=== PATIENT | male | born 1990 | race Caucasian/White ===

== ENCOUNTER 2020-11-26 14:00 | Outpatient (RCR) | payer BC, SELFPAY ==
--- NOTE | 2020-10-15 10:01 | MHC.PT.EP ---
[facility] [place] Office [place] Office [place] Office [address] Alexandra Jerez [address] [phone] F: [phone] F: [phone] F: [phone] F: [phone] Physical Therapy Plan of Care Date of Evaluation: 10/15/20 Date of Surgery: N/A Diagnosis: M54.2 cervicalgia neck pain Assessment: pt presents w/ signs and symptoms consistent w/ cervical nerve root impingement. pt presents to physical therapy with pain, decreased range of motion, decreased strength, impaired functional mobility, and impaired postural awareness. pt is a good candidate for skilled PT due to age, potential remediation of impairments, typical disease/condition progression and prognosis, comorbidities, and motivation. pt would benefit from tailored strengthening and stretching exercise program, functional training, postural re-training, neuromuscular re-education, modalities as needed for pain, and work-related training. Frequency and Duration: The patient will be seen 2x/wk for 5 wks Short Term Goals: pt will be I w/ HEP to promote self-management of condition. pt will improve R shoulder flexion by 20 degrees to promote ease in reaching for objects on higher shelves. 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 pt will report statistically significant improvement in self-reported outcome measure, NDI, to promote return to PLOF. Treatment Plan: Modalities to reduce pain, spasms and effusion. Manual therapy to restore motion and function. Therapeutic exercise to improve strength and flexibility. Neuromuscular re-education for posture and balance. Therapeutic activities to return to functional activities of daily living. Please sign and return to therapist. Thank you for your referral.
--- NOTE | 2020-11-12 16:13 | MHC.PT.PR ---
[facility] [place] Office [place] Office [place] Office [address] Alexandra Jerez [address] [phone] F: [phone] F: [phone] F: [phone] F: [phone] Physical Therapy Progress Note Diagnosis: M54.2 cervicalgia neck pain Date of Surgery: N/A Date of Evaluation: 10/15/20 Treatments to Date: 7 Cancellations to Date: 0 No Shows to Date: 0 Subjective: pt reported the only pain he is still noticing is in his shoulder. This pain is circumstantial to what he is doing and changes w/ certain shoulder movements. Pain Score and Location: 5 R sided neck, R radicular Objective Measures: Shoulder AROM: -Flexion: B 180 (R end range pain) -Abduction: B 180 (R end range pain) -Extension: B 50 (R end range pain) -External rotation: B T2 -Internal rotation: R L3 (R pain), L T10 Shoulder MMT: -Flexion: R 4/5 (pain), L 5/5 -Abduction: R 4/5 (pain), L 5/5 -Extension: R 4+/5 (pain), L 5/5 -Internal rotation: R 4-/5 (pain), L 4+/5 -External rotation: R 4/5, L 4+/5 Assessment: pt arrived reporting he has noticed a significant improvement in his function and pain. pt feels he has improved approx. 75% since starting physical therapy. His radicular symptoms have cleared and he has noticed an improvement in his R shoulder strength. He still has lateral shoulder pain w/ shoulder specific movements. Performed an abbreviated re-eval today and pt has signs and symptoms consistent w/ R RTC tendinopathy, specifically w/ internal rotation movements. pt had pain provocation and reproduction w/ IR AROM and resisted testing. pt still has pain w/ reaching for objects on higher shelves, upper body ADLs, sleeping on the R side, and lifting greater than 30#. pt requires progress note from PT in order to MD to fulfill extension required as pt is not ready to return to work. This PT will send progress note on 11/12 to MD in order to fulfill extension. Fax: PT Plan: Continue with PT Frequency and Duration: The patient will be seen 2x/wk for 3 wks Treatment Plan: Therapeutic Exercise Dynamic Therapeutic Activities Neuromuscular Re-ed Manual Therapies Joint Mobilization Taping Home Exercise Program Patient Education Electrical Stimulation Iontophoresis Reviewed/ Agreed with Student Documentation: Therapist: Thank you once again for your referral.
--- NOTE | 2020-11-29 12:56 | MHC.PT.DC ---
[facility] [place] Office [place] Office [place] Office [address] Alexandra Jerez [address] [phone] F: [phone] F: [phone] F: [phone] F: [phone] Physical Therapy Discharge Report Diagnosis: M54.2 cervicalgia neck pain Date of Surgery: N/A Date of Evaluation: 10/15/20 Date of Discharge: 11/29/20 Treatments to Date: 10 Cancellations to Date: 2 No Shows to Date: 1 Discharge Status: Improved Function Independent with HEP Discharge Summary: The patient had very little irritation of shoulder with the therapeutic exercise program today. He has progressed to a strengthening routine to promote functional strength of upper extremities. Discussed with the patient regarding a return to gym program and to avoid any exercise that increased pain greater than 2 points on numeric pain rating scale. 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 He did not attend his last visit and is being discharged at this time. Electronically signed by: Anitra Pemberton PT, DPT Please sign and return to therapist. Thank you for your referral.
== END 2020-11-29 12:57 | disposition other institution (70) ==
LOC: HO.PT 14:00
PROVIDERS: PCP Internal Medicine; Visit Provider Internal Medicine
DX: M54.2 Cervicalgia (principal)
CPT/HCPCS: 97033; 97110; 97112; 97140; 97161; 97164

== ENCOUNTER 2021-03-07 09:47 | Emergency (ER) | payer BC, SELFPAY ==
--- NOTE | ~2021-03-07 | US_ITS ---
EXAMINATION: US VENOUS ULTRASOUND WITH DOPPLER LOWER EXTREMITY, BILATERAL CLINICAL INFORMATION: Edema COMPARISON: None TECHNIQUE: Ultrasound of the deep veins is performed from the hip to the calf with compression sonography and color and pulse Doppler assessment. Spectral analysis with color-flow imaging is performed. FINDINGS: RIGHT: There is normal venous compression and respiratory variation and augmented flow. The visualized common femoral vein, superficial femoral vein, profunda femoral vein, popliteal vein, and the trifurcation region shows no evidence of deep venous thrombosis. There is no significant popliteal fossa cyst. . LEFT: There is normal venous compression and respiratory variation and augmented flow. The visualized common femoral vein, superficial femoral vein, profunda femoral vein, popliteal vein, and the trifurcation region shows no evidence of deep venous thrombosis. There is no significant popliteal fossa cyst. . US/US venous duplex LE BI IMPRESSION: No DVT demonstrated in the bilateral lower extremity.
--- NOTE | ~2021-03-07 | XR_ITS ---
EXAMINATION: XR CHEST CLINICAL INFORMATION: Lower extremity swelling with history of Covid COMPARISON: None TECHNIQUE: 2 views of the chest were obtained. FINDINGS: No significant abnormality is noted involving the heart, lungs, mediastinum, bony thorax or soft tissues. XR/XR chest 2V IMPRESSION: No acute disease.
--- NOTE | ~2021-03-07 | CT_ITS ---
EXAMINATION: CT ANGIOGRAM OF THE CHEST WITH AND WITHOUT CONTRAST (CT PULMONARY ANGIOGRAM FOR PE) CLINICAL INFORMATION: Patient with lower extremity edema. History of Covid. ?PE. COMPARISON: None TECHNIQUE: Prior to contrast administration, noncontrast localization images were obtained. Subsequently, multidetector volumetric imaging was performed from the thoracic inlet to below the diaphragms following the administration of 65 mL Omnipaque 350 intravenous contrast. No contrast reaction reported. Sagittal, coronal, and MIP oblique sagittal reformatted images were obtained on the CT workstation, uploaded to PACS, and reviewed. This CT examination was performed using dose optimization techniques as appropriate, variously including the following: *Automated exposure control *Adjustment of mA and/or kV according to patient size (this includes techniques or standardized protocols for targeted exams where dose is matched to indication/reason for exam; i.e. extremities or head) *Use of iterative reconstruction technique Total exam dose-length product 377 mGy-cm FINDINGS: QUALITY OF STUDY/CONTRAST BOLUS: Suboptimal opacification. PULMONARY ARTERIES: No gross filling defects in the central pulmonary vasculature to indicate pulmonary emboli. The more distal pulmonary arterial system is suboptimally opacified, limiting evaluation. THORACIC AORTA: Normal caliber aorta. LUN mm nodule adjacent to the right fissure 6:195. Subtle tree-in-bud opacities in the posterior aspect of the left lower lobe 6:186-190, probably reflecting inflammatory process. No confluent airspace disease.. Trachea and central airway are patent. PLEURA: No pleural effusion or pneumothorax. MEDIASTINUM: Normal heart size. No pericardial effusion. No hilar or mediastinal lymphadenopathy. No evidence of septal bowing or right heart strain. CHEST WALL/AXILLA: No axillary or internal mammary lymphadenopathy. OSSEOUS STRUCTURES: No acute or suspicious osseous abnormality. Mild thoracic spine degeneration. UPPER ABDOMEN: Unremarkable. No reflux of contrast into the hepatic veins to suggest elevated right heart pressures. CT/CT angio chest PE protocol IMPRESSION: 1. No evidence of central pulmonary emboli. The more distal vasculature is suboptimally evaluated. 2. No evidence of confluent airspace disease. Subtle small area of tree-in-bud opacities in the posterior aspect of the left lower lobe, suggesting inflammatory or infectious process. Nonspecific 2 mm right lung nodule. According to the UPDATED 2017 Fleischner Society recommendations, the advised follow-up imaging for solid nodules < 6 mm is: LOW RISK PATIENT: No routine follow-up. HIGH RISK PATIENT: Optional CT at 12 months. VTE: Negative
[2021-03-07 10:00] VITALS: BP 147/112; PULSE 90; RESP 20; TEMP 37.1; O2SAT 97; BMI 30.2
--- NOTE | 2021-03-07 10:02 | ED_ITS ---
HPI - Skin/Abscess/Foreign Bdy General Chief complaint: Skin/Abscess/Foreign Body Stated complaint: infection Time Seen by Provider: 03/07/21 09:56 Related Data Home Medications Medication Instructions Recorded Confirmed cyclobenzaprine 10 mg tablet 10 mg PO BEDTIME PRN 10/04/20 11/26/20 Allergies Allergy/AdvReac Type Severity Reaction Status Date / Time No Known Allergies Allergy Verified 11/26/20 13:25 [No Known Allergies*] Review of Systems Review of Systems: Constitutional : No Weight loss, No Fever, No Chills, No Night Sweats, No Fatigue, No Malaise ENT/Mouth : No Hearing loss, No Ear Pain, No Nasal Congestion, No Sinus Pain, No Hoarseness, No sore throat, No Rhinorrhea, No Swallowing Difficulty Eyes: No Eye Pain, No Swelling, No Redness, No Foreign Body, No Discharge, No Vision Changes Cardiovascular : No Chest Pain, No SOB, No Dyspnea on Exertion, No Orthopnea, No Edema, No Palpitations Respiratory : No Cough, No Sputum, No Wheezing, No Smoke Exposure, No Dyspnea Gastrointestinal : No Nausea, No Vomiting, No Diarrhea, No Constipation, No abdominal Pain, No Hematochezia, No Melena Genitourinary : no irregular bleeding, No Dysuria, No Urinary Frequency, No Hematuria, No Urinary Incontinence, No Urgency, No Flank Pain, No Urinary Flow Changes, No Hesitancy Musculoskeletal : No joint pain, No Myalgias, No Joint Swelling Skin : No Skin Lesions, No rash Neuro : No Weakness, No Numbness, No Paresthesias, No Loss of Consciousness, No Dizziness, No Headache Psych : No Anxiety/Panic, No Depression, No SI/HI/AH/VH, No Social Issues, Heme/Lymph: No Bruising, No Bleeding,No Lymphadenopathy Endocrine : No Polyuria, No Polydipsia, No Temperature Intolerance Yes all other systems are reviewed and are negative [facility] Past Medical History Surgical History No pertinent past surgical history Family History Family History Father No problems noted. Mother No problems noted. Social History Social History Alcohol intake: never Smoking Status: Current every day smoker Tobacco Type: Cigarette Packs Per Day: 1 Cigarettes Per Day: 20.0 Discharge Plan Discharge Prescriptions: No Action cyclobenzaprine 10 mg tablet 10 mg PO BEDTIME PRN (Reason: muscle spasm) RF: 0
--- NOTE | 2021-03-07 10:12 | ECG_ITS ---
Test Reason : SKIN ABSCESS Blood Pressure : / mmHG Vent. Rate : 067 BPM Atrial Rate : 067 BPM P-R Int : 150 ms QRS Dur : 100 ms QT Int : 410 ms P-R-T Axes : 051 053 024 degrees QTc Int : 433 ms Normal sinus rhythm Normal ECG No previous ECGs available Referred By: Karissa Dubon Electronically Signed By:TANA FAROOQ
[2021-03-07 10:57] LABS: MANUAL DIFF FLAG NO
[2021-03-07 10:59] LABS: Basophils Percent Auto 0.3 % (0-2); Eosinophils Absolute Auto 0.2 X10*3/uL (0.0-0.4); Eosinophils Percent Auto 1.9 % (0-4); Hematocrit 36.2 % (42-52); Hemoglobin 11.8 g/dl (14.0-18.0); Imm Gran Abs Auto 0.06 X10*3/uL (0.00-0.03); Imm Gran Pct Auto 0.6 % (0.0-0.4); Lymphocytes Percent Auto 19.4 % (20-40); Mean Corpuscular HGB Conc 32.6 g/dl (31.0-36.0); Mean Corpuscular Hemoglobin 27.3 pg (27.0-33.0); Mean Corpuscular Volume 83.8 fL (80-98); Mean Platelet Volume 9.8 fL (9.4-12.4); Monocytes Absolute Auto 1.1 X10*3/uL (0.1-1.2); Monocytes Percent Auto 10.1 % (2-11); Neutrophils Absolute Auto 7.1 X10*3/uL (2.0-8.3); Neutrophils Percent Auto 67.7 % (45-73); Platelet Count 300 X10*3/uL (160-400); Red Blood Count 4.32 X10*6/uL (4.60-5.80); Red Cell Distribution Width 13.8 % (11.0-16.0); White Blood Count 10.5 X10*3/uL (4.8-10.8)
[2021-03-07] MEDS: 0.9 % Sodium Chloride 1,000 ML 999 ML IVCONT (11:00)
[2021-03-07] MEDS: cefTRIAXone sodium 2 GM in 0.9 % Sodium Chloride 50 ML IV (11:00)
[2021-03-07 11:05] LABS: INTERNATIONAL NORM RATIO 1.1 (0.9-1.1)
[2021-03-07 11:07] VITALS: BP 116/57; PULSE 75; RESP 16; TEMP 37.2; O2SAT 98
[2021-03-07 11:07] LABS: Partial Thromboplastin Time 34.3 SEC (24.1-38.0)
--- NOTE | 2021-03-07 11:17 | ED.GENADULT ---
HPI - General Adult General Chief complaint: Skin/Abscess/Foreign Body Stated complaint: infection Time Seen by Provider: 03/07/21 09:56 History of Present Illness HPI narrative: 30-year-old male who is a IV drug user presenting to the ED with complaints of abscess to his right middle finger at the distal aspect near the nail bed for the past few days worse today. Also reports a separate complaint of bilateral lower extremity foot swelling for the past few days worse today. Reports he tested positive for COVID approximately 10 days ago. 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 Although denies any SI/HI/auditory/visual hallucinations or thoughts of self injury. Patient reports he feels safe at home. He reports he is interested in detox although not today. Denies any dizziness, fevers, chills, headaches, neck pain/stiffness, cough, sore throat, runny nose/nasal congestion, chest pain, shortness of breath, dyspnea on exertion, orthopnea, any symptoms which include nausea/vomiting/abdominal pain/diarrhea/constipation/black or bloody stools or calf tenderness. Related Data Home Medications Medication Instructions Recorded Confirmed cyclobenzaprine 10 mg tablet 10 mg PO BEDTIME PRN 10/04/20 11/26/20 Previous Rx's Medication Instructions Recorded cephalexin 500 mg PO BID 10 Days #20 cap 03/07/21 doxycycline monohydrate 100 mg PO BID 10 Days #20 cap 03/07/21 ibuprofen 800 mg PO Q8H PRN #14 tab 03/07/21 oxycodone 5 mg PO BID PRN #10 tab 03/07/21 Allergies Allergy/AdvReac Type Severity Reaction Status Date / Time No Known Allergies Allergy Verified 11/26/20 13:25 [No Known Allergies*] Review of Systems Review of Systems: Constitutional : No Weight loss, No Fever, No Chills, No Night Sweats, No Fatigue, No Malaise ENT/Mouth : No Hearing loss, No Ear Pain, No Nasal Congestion, No Sinus Pain, No Hoarseness, No sore throat, No Rhinorrhea, No Swallowing Difficulty Eyes: No Eye Pain, No Swelling, No Redness, No Foreign Body, No Discharge, No Vision Changes Cardiovascular : No Chest Pain, No SOB, No Dyspnea on Exertion, No Orthopnea, No Edema, No Palpitations Respiratory : No Cough, No Sputum, No Wheezing, No Smoke Exposure, No Dyspnea Gastrointestinal : No Nausea, No Vomiting, No Diarrhea, No Constipation, No abdominal Pain, No Hematochezia, No Melena Genitourinary : no irregular bleeding, No Dysuria, No Urinary Frequency, No Hematuria, No Urinary Incontinence, No Urgency, No Flank Pain, No Urinary Flow Changes, No Hesitancy Musculoskeletal : + LE leg/foot swelling, No joint pain, No Myalgias Skin : + Skin abscess, + Skin Lesions, No rash Neuro : No Weakness, No Numbness, No Paresthesias, No Loss of Consciousness, No Dizziness, No Headache Psych : No Anxiety/Panic, No Depression, No SI/HI/AH/VH, No Social Issues, Heme/Lymph: No Bruising, No Bleeding,No Lymphadenopathy Endocrine : No Polyuria, No Polydipsia, No Temperature Intolerance Yes all other systems are reviewed and are negative [facility] Past Medical History Attestation statement: The following information was validated with the patient. Surgical History No pertinent past surgical history Family History Family History Father No problems noted. Mother No problems noted. Social History Social History Alcohol intake: never Smoking Status: Current every day smoker Tobacco Type: Cigarette Packs Per Day: 1 Cigarettes Per Day: 20.0 Advance Directives: No Advance Directives Information Provided: No Physical Exam Vital Signs: Vital Signs: Last Vital Signs Temp 98.9 F 03/07/21 11:07 Pulse 75 03/07/21 11:07 Resp 18 03/07/21 11:45 BP 125/60 03/07/21 11:45 Pulse Ox 98 03/07/21 11:45 Body Mass Index 30.2 vital signs have been reviewed as normal and appeared to be correct. Blood pressure hypertensive at 147/112. Heart rate normal. Respiration rate normal. Temperature normal. Oxygen saturation normal. Appearance: Alert. Oriented X3. No acute distress. Head: Normal external exam. Normocephalic. Atraumatic. Eyes: PERRLA. EOMI. Conjunctiva and sclera normal. Eyelids normal. ENT: Pharynx normal. Uvula midline. Moist mucous membranes. No trismus noted. No drooling noted. No muffled voice noted. Neck: Normal inspection. Neck supple. FROM. No adenopathy. Thyroid Normal. No meningeal signs. No neck mass noted. CVS: Normal heart rate and rhythm. Heart sound normal. No murmurs noted. Pulses normal throughout including distal pedis. Respiratory: No respiratory distress. Painless inspiration. Breath sounds normal. No wheezes/rales/rhonchi noted. Chest nontender. No accessory muscle usage noted or decreased air movement noted. Abdomen: Soft and nontender. Bowel sounds normal in all 4 quadrants. No distention noted. No organomegaly noted. No visible injury noted. Back: No CVA tenderness. Full range of motion noted. Skin: To right hand middle finger distal aspect at the nail bed patient has a fluctuant abscess with moderate surrounding erythema. No streaking/induration/foreign bodies noted. Patient has multiples track rios on bilateral forearms no signs of infection or abscesses. Skin warm and dry. Normal skin color. Normal skin turgor. No rashes/lacerations noted. Extremities: Bilateral lower extremity pitting edema. No calf tenderness bilateral. Otherwise Extremities exhibit normal range of motion and nontender. Neuro: Oriented X 3. No motor deficit. No sensory deficit. Reflexes normal. Course Course Course Narrative: 10:15am - 30-year-old male who is a IV drug user presenting to the ED with an abscess to the right hand middle finger at the distal aspect near the nail bed and bilateral lower extremity edema. - Concern for Pulmonary embolism vs CHF vs DVT vs Endocarditis - Plan: Labs, blood culture, lactic acid, EKG, chest x-ray, CTA of chest for PE, bilateral venous duplex ultrasound to evaluate possibly DVT. Update the patient's tetanus. Provide a L of IV fluids. Start the patient on 2 g of Rocephin then re-evaluate. Reevaluation(s) Reevaluation #1: - labs obtained and patient is COVID related labs were elevated otherwise all other labs were within normal limits. Patient still positive for COVID. - bilateral venous duplex ultrasound negative for any DVT or any other acute processes. - CTA of chest for PE negative for PE or any other acute processes - chest x-ray within normal limits no acute processes noted. - EKG normal sinus rhythm no acute ischemic changes noted. - patient now status post I&D of right 3rd digit abscess patient tolerated procedure well. Will DC home with antibiotics and symptomatic treatment along with instructions return if any new or worsening symptoms to follow up with primary care provider. Patient understands agrees with this plan. Time: 14:59 Procedures Abscess I/D Site: hand (Right 3rd digit distal aspect near the nail bed) Side (if applicable): right Local Anesthetic: other anesthetic (Patient refused any anesthetics) Technique: incised with blade Amount of fluid expressed (mL): 2 Sent for culture/gram staining?: No Irrigation: Yes Packing used?: none Complications: other (No complications patient tolerated procedure well) Medical Decision Making Medical Records Medical records reviewed: Yes I reviewed the patient's medical records. Lab Data Lab results reviewed: Yes I reviewed the patient's lab results. Result diagrams: 03/07/21 10:48 03/07/21 10:48 Labs: Lab Results 03/07/21 03/07/21 03/07/21 Range/Units 10:48 10:48 10:48 WBC 10.5 (4.8-10.8) X10*3/uL RBC 4.32 L (4.60-5.80) X10*6/uL Hgb 11.8 L (14.0-18.0) g/dl Hct 36.2 L (42-52) % MCV 83.8 (80-98) fL MCH 27.3 (27.0-33.0) pg MCHC 32.6 (31.0-36.0) g/dl RDW 13.8 (11.0-16.0) % Plt Count 300 (160-400) X10*3/uL MPV 9.8 (9.4-12.4) fL Immature Gran % (Auto) 0.6 H (0.0-0.4) % Neut % (Auto) 67.7 (45-73) % Lymph % (Auto) 19.4 L (20-40) % [place] % (Auto) 10.1 (2-11) % Eos % (Auto) 1.9 (0-4) % Baso % (Auto) 0.3 (0-2) % Lymph # (Auto) 2.0 (1.2-4.9) X10*3/uL [place] # (Auto) 1.1 (0.1-1.2) X10*3/uL Eos # (Auto) 0.2 (0.0-0.4) X10*3/uL Baso # (Auto) 0.0 (0.0-0.2) X10*3/uL Abs Immat Gran (auto) 0.06 H (0.00-0.03) X10*3/uL Absolute Neuts (auto) 7.1 (2.0-8.3) X10*3/uL Absolute Nucleated RBC 0.000 (0.0-0.012) X10*3/uL Nucleated RBC % (auto) 0.0 (0.0-0.2) /100WBC PT 13.0 (10.8-13.0) SEC INR 1.1 (0.9-1.1) APTT 34.3 (24.1-38.0) SEC Sodium 139 (135-145) mmol/L Potassium 3.6 (3.3-5.1) mmol/L Chloride 99 (96-108) mmol/L Carbon Dioxide 32 H (22-29) mmol/L Anion Gap 12 (12-20) BUN 11 (9-16) mg/dL Creatinine 0.78 (0.5-1.4) mg/dL Estim Creat Clear Calc 153.1 Estimated GFR > 60 Random Glucose 95 (60-115) mg/dL Lactic Acid (0.5-2.0) mmol/L Calcium 8.5 (8.4-10.2) mg/dL Magnesium 2.0 (1.6-2.6) mg/dL Ferritin 285 H (20-250) ng/mL Total Bilirubin 0.6 (0.0-1.0) mg/dL Direct Bilirubin 0.4 (0.0-0.5) mg/dL AST 146 H (5-37) U/L ALT 167 H (0-40) U/L Alkaline Phosphatase 56 (39-117) U/L Lactate Dehydrogenase 465 H (118-273) U/L Troponin I High Sens (<3.5-35.0) ng/L C-Reactive Protein 4.05 H (< or = 0.50) mg/dL B-Natriuretic Peptide (<100) pg/mL Total Protein 5.8 L (6.5-8.0) g/dL Albumin 3.3 L (3.5-5.0) g/dL Procalcitonin ng/mL Ethyl Alcohol mg/dL Coronavirus (PCR) (Negative) Influenza Type A (PCR) (Negative) Influenza Type B (PCR) (Negative) RSV RNA Qual (PCR) (Negative) 03/07/21 03/07/21 03/07/21 Range/Units 10:48 10:48 10:48 WBC (4.8-10.8) X10*3/uL RBC (4.60-5.80) X10*6/uL Hgb (14.0-18.0) g/dl Hct (42-52) % MCV (80-98) fL MCH (27.0-33.0) pg MCHC (31.0-36.0) g/dl RDW (11.0-16.0) % Plt Count (160-400) X10*3/uL MPV (9.4-12.4) fL Immature Gran % (Auto) (0.0-0.4) % Neut % (Auto) (45-73) % Lymph % (Auto) (20-40) % [place] % (Auto) (2-11) % Eos % (Auto) (0-4) % Baso % (Auto) (0-2) % Lymph # (Auto) (1.2-4.9) X10*3/uL [place] # (Auto) (0.1-1.2) X10*3/uL Eos # (Auto) (0.0-0.4) X10*3/uL Baso # (Auto) (0.0-0.2) X10*3/uL Abs Immat Gran (auto) (0.00-0.03) X10*3/uL Absolute Neuts (auto) (2.0-8.3) X10*3/uL Absolute Nucleated RBC (0.0-0.012) X10*3/uL Nucleated RBC % (auto) (0.0-0.2) /100WBC PT (10.8-13.0) SEC INR (0.9-1.1) APTT (24.1-38.0) SEC Sodium (135-145) mmol/L Potassium (3.3-5.1) mmol/L Chloride (96-108) mmol/L Carbon Dioxide (22-29) mmol/L Anion Gap (12-20) BUN (9-16) mg/dL Creatinine (0.5-1.4) mg/dL Estim Creat Clear Calc Estimated GFR Random Glucose (60-115) mg/dL Lactic Acid 0.6 (0.5-2.0) mmol/L Calcium (8.4-10.2) mg/dL Magnesium (1.6-2.6) mg/dL Ferritin (20-250) ng/mL Total Bilirubin (0.0-1.0) mg/dL Direct Bilirubin (0.0-0.5) mg/dL AST (5-37) U/L ALT (0-40) U/L Alkaline Phosphatase (39-117) U/L Lactate Dehydrogenase (118-273) U/L Troponin I High Sens 4.8 (<3.5-35.0) ng/L C-Reactive Protein (< or = 0.50) mg/dL B-Natriuretic Peptide 24 (<100) pg/mL Total Protein (6.5-8.0) g/dL Albumin (3.5-5.0) g/dL Procalcitonin ng/mL Ethyl Alcohol mg/dL Coronavirus (PCR) POSITIVE A (Negative) Influenza Type A (PCR) NEGATIVE (Negative) Influenza Type B (PCR) NEGATIVE (Negative) RSV RNA Qual (PCR) NEGATIVE (Negative) 03/07/21 03/07/21 Range/Units 10:48 10:48 WBC (4.8-10.8) X10*3/uL RBC (4.60-5.80) X10*6/uL Hgb (14.0-18.0) g/dl Hct (42-52) % MCV (80-98) fL MCH (27.0-33.0) pg MCHC (31.0-36.0) g/dl RDW (11.0-16.0) % Plt Count (160-400) X10*3/uL MPV (9.4-12.4) fL Immature Gran % (Auto) (0.0-0.4) % Neut % (Auto) (45-73) % Lymph % (Auto) (20-40) % [place] % (Auto) (2-11) % Eos % (Auto) (0-4) % Baso % (Auto) (0-2) % Lymph # (Auto) (1.2-4.9) X10*3/uL [place] # (Auto) (0.1-1.2) X10*3/uL Eos # (Auto) (0.0-0.4) X10*3/uL Baso # (Auto) (0.0-0.2) X10*3/uL Abs Immat Gran (auto) (0.00-0.03) X10*3/uL Absolute Neuts (auto) (2.0-8.3) X10*3/uL Absolute Nucleated RBC (0.0-0.012) X10*3/uL Nucleated RBC % (auto) (0.0-0.2) /100WBC PT (10.8-13.0) SEC INR (0.9-1.1) APTT (24.1-38.0) SEC Sodium (135-145) mmol/L Potassium (3.3-5.1) mmol/L Chloride (96-108) mmol/L Carbon Dioxide (22-29) mmol/L Anion Gap (12-20) BUN (9-16) mg/dL Creatinine (0.5-1.4) mg/dL Estim Creat Clear Calc Estimated GFR Random Glucose (60-115) mg/dL Lactic Acid (0.5-2.0) mmol/L Calcium (8.4-10.2) mg/dL Magnesium (1.6-2.6) mg/dL Ferritin (20-250) ng/mL Total Bilirubin (0.0-1.0) mg/dL Direct Bilirubin (0.0-0.5) mg/dL AST (5-37) U/L ALT (0-40) U/L Alkaline Phosphatase (39-117) U/L Lactate Dehydrogenase (118-273) U/L Troponin I High Sens (<3.5-35.0) ng/L C-Reactive Protein (< or = 0.50) mg/dL B-Natriuretic Peptide (<100) pg/mL Total Protein (6.5-8.0) g/dL Albumin (3.5-5.0) g/dL Procalcitonin 0.14 ng/mL Ethyl Alcohol < 10 mg/dL Coronavirus (PCR) (Negative) Influenza Type A (PCR) (Negative) Influenza Type B (PCR) (Negative) RSV RNA Qual (PCR) (Negative) Imaging Data Chest x-ray: Attestation: I personally reviewed and interpreted this imaging study as follows: Radiologist's impression: FINDINGS: No significant abnormality is noted involving the heart, lungs, mediastinum, bony thorax or soft tissues. XR/XR chest 2V IMPRESSION: No acute disease. Chest CTA for PE: Attestation: I personally reviewed and interpreted this imaging study as follows: Radiologist's impression: FINDINGS: QUALITY OF STUDY/CONTRAST BOLUS: Suboptimal opacification. PULMONARY ARTERIES: No gross filling defects in the central pulmonary vasculature to indicate pulmonary emboli. The more distal pulmonary arterial system is suboptimally opacified, limiting evaluation. THORACIC AORTA: Normal caliber aorta. LUN mm nodule adjacent to the right fissure 6:195. Subtle tree-in-bud opacities in the posterior aspect of the left lower lobe 6:186-190, probably reflecting inflammatory process. No confluent airspace disease.. Trachea and central airway are patent. PLEURA: No pleural effusion or pneumothorax. MEDIASTINUM: Normal heart size. No pericardial effusion. No hilar or mediastinal lymphadenopathy. No evidence of septal bowing or right heart strain. CHEST WALL/AXILLA: No axillary or internal mammary lymphadenopathy. OSSEOUS STRUCTURES: No acute or suspicious osseous abnormality. Mild thoracic spine degeneration. UPPER ABDOMEN: Unremarkable. No reflux of contrast into the hepatic veins to suggest elevated right heart pressures. CT/CT angio chest PE protocol IMPRESSION: 1. No evidence of central pulmonary emboli. The more distal vasculature is suboptimally evaluated. 2. No evidence of confluent airspace disease. Subtle small area of tree-in-bud opacities in the posterior aspect of the left lower lobe, suggesting inflammatory or infectious process. Nonspecific 2 mm right lung nodule. According to the UPDATED 2017 Fleischner Society recommendations, the advised follow-up imaging for solid nodules < 6 mm is: LOW RISK PATIENT: No routine follow-up. HIGH RISK PATIENT: Optional CT at 12 months. VTE: Negative Venous duplex ultrasound of bilateral lower extremity: Attestation: I personally reviewed and interpreted this imaging study as follows: Radiologist's impression: FINDINGS: RIGHT: There is normal venous compression and respiratory variation and augmented flow. The visualized common femoral vein, superficial femoral vein, profunda femoral vein, popliteal vein, and the trifurcation region shows no evidence of deep venous thrombosis. There is no significant popliteal fossa cyst. . LEFT: There is normal venous compression and respiratory variation and augmented flow. The visualized common femoral vein, superficial femoral vein, profunda femoral vein, popliteal vein, and the trifurcation region shows no evidence of deep venous thrombosis. There is no significant popliteal fossa cyst. . US/US venous duplex LE BI IMPRESSION: No DVT demonstrated in the bilateral lower extremity. ECG Data Attestation: I personally reviewed and interpreted this ECG as follows: Interpretation: Normal sinus rhythm and a tricky rate of 67 with a normal ID interval normal QRS duration normal QT/QTC interval. No acute ischemic changes noted. No prior EKGs in system to compare to at this time. Critical Care Time Critical Care Time Critical Care Time: Yes Total Critical Care Time: 60 Attestation: I personally attest to this time spent taking care of the patient Discharge Plan Discharge Clinical Impression: Cellulitis, Abscess of skin or subcutaneous tissue, Pedal edema Patient Disposition: Home, Self-Care Instructions: Cellulitis (ED), Abscess (ED) Prescriptions: New ibuprofen 800 mg tablet 800 mg PO Q8H PRN (Reason: pain) Qty: 14 RF: 0 doxycycline monohydrate 100 mg capsule 100 mg PO BID 10 Days Qty: 20 RF: 0 cephalexin 500 mg capsule 500 mg PO BID 10 Days Qty: 20 RF: 0 oxycodone 5 mg tablet 5 mg PO BID PRN (Reason: pain) Qty: 10 RF: 0 No Action cyclobenzaprine 10 mg tablet 10 mg PO BEDTIME PRN (Reason: muscle spasm) RF: 0 Referrals: Ben Foss MD [Primary Care Provider] - 2 days Print Language: Austrian
[2021-03-07 11:18] LABS: Lactic Acid 0.6 mmol/L (0.5-2.0)
[2021-03-07 11:20] LABS: Ethanol < 10 mg/dL
[2021-03-07] MEDS: Diphth,Pertus(ACell),Tet Adult 0.5 ML SYRINGE IM (11:24)
[2021-03-07 11:27] LABS: B Type Natriuretic Peptide 24 pg/mL (<100); Troponin-I High Sensitivity 4.8 ng/L (<3.5-35.0)
[2021-03-07 11:28] LABS: Alanine Aminotransferase 167 U/L (0-40); Albumin Level 3.3 g/dL (3.5-5.0); Alkaline Phosphatase 56 U/L (39-117); Anion Gap 12 (12-20); Aspartate Amino Transferase 146 U/L (5-37); Bilirubin Direct 0.4 mg/dL (0.0-0.5); Bilirubin Total 0.6 mg/dL (0.0-1.0); Blood Urea Nitrogen 11 mg/dL (9-16); C Reactive Protein 4.05 mg/dL (< or = 0.50); Calcium 8.5 mg/dL (8.4-10.2); Carbon Dioxide 32 mmol/L (22-29); Chloride 99 mmol/L (96-108); Creatinine Clr Calc Pharmacy 153.1; Estimated Glomerular Filt Rate > 60; Glucose Random 95 mg/dL (60-115); Lactate Dehydrogenase 465 U/L (118-273); Potassium 3.6 mmol/L (3.3-5.1); Sodium 139 mmol/L (135-145); Total Protein 5.8 g/dL (6.5-8.0)
[2021-03-07 11:45] VITALS: BP 125/60; RESP 18; O2SAT 98
[2021-03-07 11:46] LABS: Procalcitonin 0.14 ng/mL
[2021-03-07 12:05] LABS: Influenza A PCR NEGATIVE (Negative); Influenza B PCR NEGATIVE (Negative); Resp Syncy Virus RNA Qual PCR NEGATIVE (Negative); SARS COV2 PCR INHOUSE POSITIVE (Negative)
[2021-03-07 12:19] LABS: Ferritin 285 ng/mL (20-250)
[2021-03-07] MEDS: oxyCODONE HCl Immed Release 5 MG TABLET PO (15:11)
[2021-03-07] MEDS: cephALEXin 500 MG CAPSULE PO (15:11)
[2021-03-07] MEDS: Morphine Sulfate 2 MG/ML CARTRIDGE IVPUSH (15:11)
[2021-03-07] MEDS: Lidocaine HCl 1 % MPF 5 ML VIAL SUBCUT (15:12)
== END 2021-03-07 16:24 | disposition home or self-care (01) ==
PROVIDERS: Physician Assistant Medical; Emergency Provider Emergency Medicine; PCP Internal Medicine
DX: U07.1 COVID-19 (principal); L02.511 Cutaneous abscess of right hand; L03.011 Cellulitis of right finger; F17.210 Nicotine dependence, cigarettes, uncomplicated; R60.0 Localized edema; I10 Essential (primary) hypertension
CPT/HCPCS: 0241U; 26010; 36415; 71046; 71275; 80048; 80076; 80320; 82728; 83605; 83615; 83735; 83880; 84145; 84484; 85025; 85610; 85730; 86140; 87040; 90471; 90715; 93005; 93970; 96361; 96365; 96374; 96375; 99283; 99291; J0696; J2270; Q9967

== ENCOUNTER 2021-04-11 03:14 | Emergency (ER) | payer BC, SELFPAY ==
[2021-04-11 04:36] VITALS: BP 133/79; PULSE 83; RESP 16; TEMP 37.5; O2SAT 98; BMI 29.5
--- NOTE | 2021-04-11 05:00 | ED.EXTPRO ---
HPI - Extremity Problem General Chief complaint: Extremity Injury, Upper Stated complaint: arm pain Time Seen by Provider: 04/11/21 05:00 Source: patient Mode of arrival: ambulatory Limitations: no limitations History of Present Illness HPI Narrative: Patient comes to emergency room, states he has an abscess on the left arm from IV drug use. Is red and swollen, started 3 days ago. Patient refused to show me his arm, states he wants antibiotics. Patient went to the bathroom, he was taking a long time, security was called. When they opened the door, it was noticed that the patient was injecting in his arm. Security asked him to foreign exchange student coordinator, patient declined, states that he wants to leave against medical advise Related Data Home Medications Medication Instructions Recorded Confirmed cyclobenzaprine 10 mg tablet 10 mg PO BEDTIME PRN 10/04/20 11/26/20 Previous Rx's Medication Instructions Recorded cephalexin 500 mg PO BID 10 Days #20 cap 03/07/21 doxycycline monohydrate 100 mg PO BID 10 Days #20 cap 03/07/21 ibuprofen 800 mg PO Q8H PRN #14 tab 03/07/21 oxycodone 5 mg PO BID PRN #10 tab 03/07/21 Allergies Allergy/AdvReac Type Severity Reaction Status Date / Time No Known Allergies Allergy Verified 11/26/20 13:25 [No Known Allergies*] Review of Systems Review of Systems: Constitutional : No Weight loss, No Fever, No Chills, No Night Sweats, No Fatigue, No Malaise ENT/Mouth : No Hearing loss, No Ear Pain, No Nasal Congestion, No Sinus Pain, No Hoarseness, No sore throat, No Rhinorrhea, No Swallowing Difficulty Eyes: No Eye Pain, No Swelling, No Redness, No Foreign Body, No Discharge, No Vision Changes Cardiovascular : No Chest Pain, No SOB, No Dyspnea on Exertion, No Orthopnea, No Edema, No Palpitations Respiratory : No Cough, No Sputum, No Wheezing, No Smoke Exposure, No Dyspnea Gastrointestinal : No Nausea, No Vomiting, No Diarrhea, No Constipation, No abdominal Pain, No Hematochezia, No Melena Genitourinary : no irregular bleeding, No Dysuria, No Urinary Frequency, No Hematuria, No Urinary Incontinence, No Urgency, No Flank Pain, No Urinary Flow Changes, No Hesitancy Musculoskeletal : No joint pain, No Myalgias, No Joint Swelling Skin : Complaining of an abscess in his arm Neuro : No Weakness, No Numbness, No Paresthesias, No Loss of Consciousness, No Dizziness, No Headache Psych : No Anxiety/Panic, No Depression, No SI/HI/AH/VH, No Social Issues, Heme/Lymph: No Bruising, No Bleeding,No Lymphadenopathy Endocrine : No Polyuria, No Polydipsia, No Temperature Intolerance PMFSH Past Medical History Surgical History No pertinent past surgical history Family History Family History Father No problems noted. Mother No problems noted. Social History Social History Alcohol intake: current Alcohol intake frequency: holidays/special occasions only Smoking Status: Current every day smoker Tobacco Type: Cigarette Packs Per Day: 1 Cigarettes Per Day: 20.0 Smoked in Last 30 Days: Yes Use of substances other than those prescribed or required for medical reasons: Yes Substance Use Type: Crack/Cocaine, Heroin, IV Drugs and Opiates Advance Directives: No Advance Directives Information Provided: No Physical Exam Vital Signs: Vital Signs: Last Vital Signs Temp 99.5 F 04/11/21 04:36 Pulse 83 04/11/21 04:36 Resp 16 04/11/21 04:36 BP 133/79 04/11/21 04:36 Pulse Ox 98 04/11/21 04:36 Body Mass Index 29.5 Refused physical exam Course Course Course Narrative: Patient left against medical advice when security asked him to change his clothes into a hospital gown Discharge Plan Discharge Clinical Impression: IV drug user, Abscess Patient Disposition: Left Against Medical Advice Prescriptions: No Action ibuprofen 800 mg tablet 800 mg PO Q8H PRN (Reason: pain) Qty: 14 RF: 0 doxycycline monohydrate 100 mg capsule 100 mg PO BID 10 Days Qty: 20 RF: 0 cephalexin 500 mg capsule 500 mg PO BID 10 Days Qty: 20 RF: 0 oxycodone 5 mg tablet 5 mg PO BID PRN (Reason: pain) Qty: 10 RF: 0 cyclobenzaprine 10 mg tablet 10 mg PO BEDTIME PRN (Reason: muscle spasm) RF: 0
--- NOTE | 2021-04-11 05:03 | PC.NURSE ---
pt was in the bathroom for an extended period of time. charge nurse and security notified. security observed pt using drugs in the bathroom and informed him he would have to be changed into hospital gown and have his personal items collected by security. pt adamantly refused and then stated that he wanted to leave. notified of patient wanting to leave AMA. pt aware of risks of leaving AMA and told he can return to ED at anytime.
== END 2021-04-11 06:00 | disposition left against medical advice (07) ==
PROVIDERS: Emergency Provider Emergency Medicine
DX: F19.10 Other psychoactive substance abuse, uncomplicated (principal); L02.414 Cutaneous abscess of left upper limb; F17.210 Nicotine dependence, cigarettes, uncomplicated
CPT/HCPCS: 99281; 99284

== ENCOUNTER 2022-02-18 22:12 | Inpatient (IN) | payer SELFPAY ==
--- NOTE | 2022-02-18 | ECG_ITS ---
Test Reason : OVERDOSE Blood Pressure : / mmHG Vent. Rate : 103 BPM Atrial Rate : 103 BPM P-R Int : 148 ms QRS Dur : 090 ms QT Int : 358 ms P-R-T Axes : 040 027 035 degrees QTc Int : 468 ms Sinus tachycardia Normal EKG When compared with ECG of 07-MAR-2021 10:24, No significant changes seen Referred By: Pillo Wharton Electronically Signed By:Esequiel Ron
--- NOTE | ~2022-02-18 | XR_ITS ---
EXAMINATION: XR CHEST CLINICAL INFORMATION: 03/07/2021 chest radiographs. COMPARISON: 03/07/2021 chest radiographs. TECHNIQUE: Frontal view of the chest was obtained. FINDINGS: Bilateral perihilar infiltrates are seen, right greater than left. The heart and mediastinal structures are unremarkable. XR/XR chest 1V IMPRESSION: Bilateral perihilar infiltrates, right greater than left, were not seen previously and suggest an acute infectious/inflammatory process. A follow-up chest radiograph following treatment is recommended to assess for resolution.
[2022-02-18 22:21] VITALS: BP 103/68; BP 110/71; PULSE 102; PULSE 98; RESP 18; TEMP 36.7; O2SAT 96; BMI 33.4
--- NOTE | 2022-02-18 22:34 | ED.OVERDOSE ---
HPI - Overdose General Chief Complaint: Overdose Stated Complaint: overdose Time Seen by Provider: 02/18/22 22:30 Source: patient Mode of arrival: EMS Limitations: no limitations History of Present Illness HPI Narrative: Patient with history of heroin abuse was in remission for last 6 months today he used 2 bags snorted and lost consciousness bystander give him 12 mg of Narcan intranasally prior to EMS arrival at that time patient was groggy waking up saturating 96% at room air, patient also been feeling sick coughing for last few days not vaccinated against COVID Related Data Home Medications Medication Instructions Recorded Confirmed cyclobenzaprine 10 mg tablet 10 mg PO BEDTIME PRN 10/04/20 11/26/20 Previous Rx's Medication Instructions Recorded cephalexin 500 mg capsule 500 mg PO BID 10 Days #20 cap 03/07/21 doxycycline monohydrate 100 mg 100 mg PO BID 10 Days #20 cap 03/07/21 capsule ibuprofen 800 mg tablet 800 mg PO Q8H PRN #14 tab 03/07/21 oxycodone 5 mg tablet 5 mg PO BID PRN #10 tab 03/07/21 Allergies Allergy/AdvReac Type Severity Reaction Status Date / Time No Known Allergies Allergy Verified 11/26/20 13:25 [No Known Allergies*] Review of Systems Review of Systems: Yes all other systems are reviewed and are negative PMFSH Past Medical History Surgical History No pertinent past surgical history Family History Family History Father No problems noted. Mother No problems noted. Social History Social History Alcohol intake: current Alcohol intake frequency: holidays/special occasions only Cigarette Packs Per Day: 1 Cigarettes Per Day: 20.0 Substance Use Type: Crack/Cocaine, Heroin, IV Drugs and Opiates Advance Directives: No Advance Directives Information Provided: No Physical Exam Vital Signs: Vital Signs: Last Vital Signs Temp 98.1 F 02/18/22 22:21 Pulse 105 H 02/19/22 02:18 Resp 24 H 02/19/22 02:18 BP 123/78 02/19/22 02:18 Pulse Ox 97 02/19/22 02:18 BMI result Body Mass Index 33.4 Appearance: Alert. Oriented X3. No acute distress. Eyes: PERRLA, HEENT: Pharynx normal. Oral Mucosa moist atraumatic normocephalic Neck: Normal inspection. Neck supple. CVS: Normal heart rate and rhythm. Pulses normal. Respiratory: No respiratory distress. Equal air entry bilateral, no wheezing/rales/rhonchi Abdomen: Soft and nontender. Bowel sounds are present, no mass palpable, no CVA tenderness Skin: Skin warm and dry. Normal skin color. Normal skin turgor. Extremities: No lower extremity edema. No calf tenderness Neuro: Oriented X 3. No motor deficit. Course Reevaluation(s) Reevaluation #1: Patient started desaturating to 54% room air improved after non-rebreather upright chest x-ray showed right lower lobe infiltrate do the blood cultures and start IV antibiotics COVID 19 was negative. Time: 00:40 MDM - Overdose MDM Narrative Medical decision making narrative: Patient with pneumonia with heroin overdose accidentally. Patient been coughing for last few days her leukocytosis with lactic acidosis possibly secondary to hypoxia along with infection give IV fluids IV antibiotics admit patient for pneumonia and opiate abuse Lab Data Attestation: I reviewed the patient's lab results. Result diagrams: 02/19/22 01:00 02/19/22 01:00 Labs: Lab Results 02/18/22 02/19/22 02/19/22 Range/Units 22:34 01:00 01:00 WBC 20.5 H (4.8-10.8) X10*3/uL RBC 6.04 H (4.60-5.80) X10*6/uL Hgb 16.9 (14.0-18.0) g/dl Hct 52.2 H (42.0-52.0) % MCV 86.4 (80.0-98.0) fL MCH 28.0 (27.0-33.0) pg MCHC 32.4 (31.0-36.0) g/dl RDW 13.5 (11.0-16.0) % Plt Count 202 (160-400) X10*3/uL MPV 10.2 (9.4-12.4) fL Immature Gran % (Auto) 0.7 H (0.0-0.4) % Neut % (Auto) 86.5 H (45-73) % Lymph % (Auto) 8.4 L (20-40) % [place] % (Auto) 4.0 (2-11) % Eos % (Auto) 0.1 (0-4) % Baso % (Auto) 0.3 (0-2) % Lymph # (Auto) 1.7 (1.2-4.9) X10*3/uL [place] # (Auto) 0.8 (0.1-1.2) X10*3/uL Eos # (Auto) 0.0 (0.0-0.4) X10*3/uL Baso # (Auto) 0.1 (0.0-0.2) X10*3/uL Abs Immat Gran (auto) 0.14 H (0.00-0.03) X10*3/uL Absolute Neuts (auto) 17.7 H (2.0-8.3) x10*3/uL Absolute Nucleated RBC 0.000 (0.0-0.012) X10*3/uL Nucleated RBC % (auto) 0.0 (0.0-0.2) /100WBC Sodium 137 (135-145) mmol/L Potassium 5.4 H D (3.3-5.1) mmol/L Chloride 105 (96-108) mmol/L Carbon Dioxide 19 L (22-29) mmol/L Anion Gap 18 (12-20) BUN 16 (9-16) mg/dL Creatinine 1.06 (0.5-1.4) mg/dL Estim Creat Clear Calc 113.4 Estimated GFR > 60 Random Glucose 139 H D (60-115) mg/dL Lactic Acid (0.5-2.0) mmol/L Calcium 8.5 (8.4-10.2) mg/dL Total Bilirubin 0.5 (0.0-1.0) mg/dL AST 148 H (5-37) U/L ALT 254 H (0-40) U/L Alkaline Phosphatase 92 D (39-117) U/L Total Protein 7.6 D (6.5-8.0) g/dL Albumin 4.1 D (3.5-5.0) g/dL Urine Color Urine Appearance Urine pH (5.0-8.0) Ur Specific [place] (1.005-1.025) Urine Protein (NEG-TRACE) MG/DL Urine Glucose (UA) (NEG) MG/DL Urine Ketones (NEG) MG/DL Urine Blood (NEG) Urine Nitrite (NEG) Ur Leukocyte Esterase (NEG) Urine RBC (0) /HPF Urine WBC (0-4) /HPF Ur Squamous Epith Cells /LPF Urine Bacteria /LPF Urine Opiates Screen (Not Detect) Urine Fentanyl Screen (Not Detect) Ur Barbiturates Screen (Not Detect) Ur Phencyclidine Scrn (Not Detect) Ur Amphetamines Screen (Not Detect) U Benzodiazepines Scrn (Not Detect) Urine Cocaine Screen (Not Detect) U Marijuana (THC) Screen (Not Detect) COVID-19 ([facility]) Negative (Negative) COVID-19 Clin Com See Note Influenza Type A (PCR) (Negative) Influenza Type B (PCR) (Negative) RSV RNA Qual (PCR) (Negative) SARS-CoV-2 RNA (RT-PCR) (Negative) 02/19/22 02/19/22 02/19/22 Range/Units 01:01 01:13 01:48 WBC (4.8-10.8) X10*3/uL RBC (4.60-5.80) X10*6/uL Hgb (14.0-18.0) g/dl Hct (42.0-52.0) % MCV (80.0-98.0) fL MCH (27.0-33.0) pg MCHC (31.0-36.0) g/dl RDW (11.0-16.0) % Plt Count (160-400) X10*3/uL MPV (9.4-12.4) fL Immature Gran % (Auto) (0.0-0.4) % Neut % (Auto) (45-73) % Lymph % (Auto) (20-40) % [place] % (Auto) (2-11) % Eos % (Auto) (0-4) % Baso % (Auto) (0-2) % Lymph # (Auto) (1.2-4.9) X10*3/uL [place] # (Auto) (0.1-1.2) X10*3/uL Eos # (Auto) (0.0-0.4) X10*3/uL Baso # (Auto) (0.0-0.2) X10*3/uL Abs Immat Gran (auto) (0.00-0.03) X10*3/uL Absolute Neuts (auto) (2.0-8.3) x10*3/uL Absolute Nucleated RBC (0.0-0.012) X10*3/uL Nucleated RBC % (auto) (0.0-0.2) /100WBC Sodium (135-145) mmol/L Potassium (3.3-5.1) mmol/L Chloride (96-108) mmol/L Carbon Dioxide (22-29) mmol/L Anion Gap (12-20) BUN (9-16) mg/dL Creatinine (0.5-1.4) mg/dL Estim Creat Clear Calc Estimated GFR Random Glucose (60-115) mg/dL Lactic Acid 3.3 H* (0.5-2.0) mmol/L Calcium (8.4-10.2) mg/dL Total Bilirubin (0.0-1.0) mg/dL AST (5-37) U/L ALT (0-40) U/L Alkaline Phosphatase (39-117) U/L Total Protein (6.5-8.0) g/dL Albumin (3.5-5.0) g/dL Urine Color Urine Appearance Urine pH (5.0-8.0) Ur Specific [place] (1.005-1.025) Urine Protein (NEG-TRACE) MG/DL Urine Glucose (UA) (NEG) MG/DL Urine Ketones (NEG) MG/DL Urine Blood (NEG) Urine Nitrite (NEG) Ur Leukocyte Esterase (NEG) Urine RBC (0) /HPF Urine WBC (0-4) /HPF Ur Squamous Epith Cells /LPF Urine Bacteria /LPF Urine Opiates Screen Not Detected (Not Detect) Urine Fentanyl Screen POSITIVE H (Not Detect) Ur Barbiturates Screen Not Detected (Not Detect) Ur Phencyclidine Scrn Not Detected (Not Detect) Ur Amphetamines Screen Not Detected (Not Detect) U Benzodiazepines Scrn Not Detected (Not Detect) Urine Cocaine Screen Not Detected (Not Detect) U Marijuana (THC) Screen Not Detected (Not Detect) COVID-19 ([facility]HA) (Negative) COVID-19 Clin Com Influenza Type A (PCR) NEGATIVE (Negative) Influenza Type B (PCR) NEGATIVE (Negative) RSV RNA Qual (PCR) NEGATIVE (Negative) SARS-CoV-2 RNA (RT-PCR) NEGATIVE (Negative) 02/19/22 Range/Units 01:48 WBC (4.8-10.8) X10*3/uL RBC (4.60-5.80) X10*6/uL Hgb (14.0-18.0) g/dl Hct (42.0-52.0) % MCV (80.0-98.0) fL MCH (27.0-33.0) pg MCHC (31.0-36.0) g/dl RDW (11.0-16.0) % Plt Count (160-400) X10*3/uL MPV (9.4-12.4) fL Immature Gran % (Auto) (0.0-0.4) % Neut % (Auto) (45-73) % Lymph % (Auto) (20-40) % [place] % (Auto) (2-11) % Eos % (Auto) (0-4) % Baso % (Auto) (0-2) % Lymph # (Auto) (1.2-4.9) X10*3/uL [place] # (Auto) (0.1-1.2) X10*3/uL Eos # (Auto) (0.0-0.4) X10*3/uL Baso # (Auto) (0.0-0.2) X10*3/uL Abs Immat Gran (auto) (0.00-0.03) X10*3/uL Absolute Neuts (auto) (2.0-8.3) x10*3/uL Absolute Nucleated RBC (0.0-0.012) X10*3/uL Nucleated RBC % (auto) (0.0-0.2) /100WBC Sodium (135-145) mmol/L Potassium (3.3-5.1) mmol/L Chloride (96-108) mmol/L Carbon Dioxide (22-29) mmol/L Anion Gap (12-20) BUN (9-16) mg/dL Creatinine (0.5-1.4) mg/dL Estim Creat Clear Calc Estimated GFR Random Glucose (60-115) mg/dL Lactic Acid (0.5-2.0) mmol/L Calcium (8.4-10.2) mg/dL Total Bilirubin (0.0-1.0) mg/dL AST (5-37) U/L ALT (0-40) U/L Alkaline Phosphatase (39-117) U/L Total Protein (6.5-8.0) g/dL Albumin (3.5-5.0) g/dL Urine Color YELLOW Urine Appearance CLEAR Urine pH 6.0 (5.0-8.0) Ur Specific [place] >= 1.030 H (1.005-1.025) Urine Protein NEG (NEG-TRACE) MG/DL Urine Glucose (UA) NEG (NEG) MG/DL Urine Ketones NEG (NEG) MG/DL Urine Blood NEG (NEG) Urine Nitrite NEG (NEG) Ur Leukocyte Esterase NEG (NEG) Urine RBC 0-2 (0) /HPF Urine WBC 0-2 (0-4) /HPF Ur Squamous Epith Cells TRACE /LPF Urine Bacteria TRACE /LPF Urine Opiates Screen (Not Detect) Urine Fentanyl Screen (Not Detect) Ur Barbiturates Screen (Not Detect) Ur Phencyclidine Scrn (Not Detect) Ur Amphetamines Screen (Not Detect) U Benzodiazepines Scrn (Not Detect) Urine Cocaine Screen (Not Detect) U Marijuana (THC) Screen (Not Detect) COVID-19 ([facility]HA) (Negative) COVID-19 Clin Com Influenza Type A (PCR) (Negative) Influenza Type B (PCR) (Negative) RSV RNA Qual (PCR) (Negative) SARS-CoV-2 RNA (RT-PCR) (Negative) Discharge Plan Discharge Clinical Impression: Drug overdose, Pneumonia, Hypoxic Patient Disposition: Admitted As Inpatient
--- NOTE | 2022-02-18 22:43 | PC.NURSE ---
patient arrived via ems, awake, a&ox3, pvc monitor applied sinus tach on monitor, security called to do size changer, patient vitals stable, ekg performed, cxr performed, covid swab performed, call landeros within reach, will continue to monitor.
--- NOTE | 2022-02-18 23:00 | PC.NURSE ---
Assumed care of pt
[2022-02-18 23:12] LABS: COVID-19 Test Negative (Negative); IDNOW Serial# 55D5AD1C
--- NOTE | 2022-02-18 23:33 | HO.SUDE ---
CARE team met with pt to offer a SUDE. Pt arrived to the ED via ambulance s/p an accidental overdose using 2 bags of heroin intranasally. Pt was found outside near the road by a bystander and was given 12mg of narcan prior to arrival. Pt reported that this was his first overdose that required narcan/medical attention. Pt reported that his use tonight was after 6 months of being in recovery. He and his filidiae have both been clean and he identified that jocelynn's use was impulsive and in response to an interaction that the pt and his girlfriend had with a homeless woman whom they gave cigarettes to and bought food for. Pt shared that he had been clean for 4 years, then relapsed in January 2021. In July 2021, he and his fiancee went to the [facility] to get clean and make distance between them and this area while they do so, and reported that they went through the withdrawals on their own. He reported that they came back around [facility] and that they had been doing well until this evening. Pt shared that he has been using off and on for 14 years, and that he has a history of detoxing both in facilities and on his own at home. His longest period of being in recovery is 4 years. Pt denied that he wants to continue using and reported that he feels foolish for what happened tonight. Pt wasn't able to fully participate in an evaluation due to his level of distress re: not knowing where his karo is and why he was found near the road several blocks away from where she and him had used in her car. At pt's request, this script writer made a call to the [employer] to give the pt's karo's physical description and the make/model of the vehicle she drives.
[2022-02-19] VITALS (15 sets, daily range): BP systolic 108–123; BP diastolic 55–85; PULSE 60–116; RESP 16–24; TEMP 36.4–37.1; O2SAT 88–97
[2022-02-19 01:08] LABS: MANUAL DIFF FLAG NO
[2022-02-19 01:14] LABS: Basophils Absolute Auto 0.1 X10*3/uL (0.0-0.2); Basophils Percent Auto 0.3 % (0-2); Eosinophils Percent Auto 0.1 % (0-4); Hematocrit 52.2 % (42.0-52.0); Hemoglobin 16.9 g/dl (14.0-18.0); Imm Gran Abs Auto 0.14 X10*3/uL (0.00-0.03); Imm Gran Pct Auto 0.7 % (0.0-0.4); Lymphocytes Absolute Auto 1.7 X10*3/uL (1.2-4.9); Lymphocytes Percent Auto 8.4 % (20-40); Mean Corpuscular HGB Conc 32.4 g/dl (31.0-36.0); Mean Corpuscular Volume 86.4 fL (80.0-98.0); Mean Platelet Volume 10.2 fL (9.4-12.4); Monocytes Absolute Auto 0.8 X10*3/uL (0.1-1.2); Neutrophils Absolute Auto 17.7 x10*3/uL (2.0-8.3); Neutrophils Percent Auto 86.5 % (45-73); Platelet Count 202 X10*3/uL (160-400); Red Blood Count 6.04 X10*6/uL (4.60-5.80); Red Cell Distribution Width 13.5 % (11.0-16.0); White Blood Count 20.5 X10*3/uL (4.8-10.8)
[2022-02-19] MEDS: Albuterol/Iprat 2.5/0.5MG 3 ML AMPUL.NEB INHALE (01:17)
[2022-02-19] MEDS: cefTRIAXone sodium 1 GM in 0.9 % Sodium Chloride 50 ML IV ×2 (01:24→22:22)
[2022-02-19 01:36] LABS: Lactic Acid 3.3 mmol/L (0.5-2.0)
[2022-02-19 01:56] LABS: Influenza A PCR NEGATIVE (Negative); Influenza B PCR NEGATIVE (Negative); Resp Syncy Virus RNA Qual PCR NEGATIVE (Negative); SARS COV2 PCR INHOUSE NEGATIVE (Negative)
[2022-02-19 01:56] LABS: Appearance Urine CLEAR; Color Urine YELLOW; Glucose Urine UA NEG (NEG); Leukocyte Esterase Urine NEG (NEG); Nitrite Urine NEG (NEG); Specific Gravity - Urine >= 1.030 (1.005-1.025); Urine Blood NEG (NEG); Urine Ketones NEG (NEG); Urine Protein NEG (NEG-TRACE)
[2022-02-19] MEDS: Doxycycline Hyclate 100 MG in 0.9 % Sodium Chloride 250 ML 166.67 MG IV (01:59)
[2022-02-19] MEDS: 0.9 % Sodium Chloride 1,000 ML 999 ML IV ×2 (01:59→02:43)
--- NOTE | 2022-02-19 02:00 | PC.NURSE ---
Pt's O2 sat down to 50s. Pt arousable Pt placed on oxymask at 15 L with O2 sat up to 94-95% Per Dr. Garcia, d/c po levaquin and start IV abx Will continue to monitor
[2022-02-19 02:01] LABS: Alanine Aminotransferase 254 U/L (0-40); Albumin Level 4.1 g/dL (3.5-5.0); Alkaline Phosphatase 92 U/L (39-117); Anion Gap 18 (12-20); Aspartate Amino Transferase 148 U/L (5-37); Bilirubin Total 0.5 mg/dL (0.0-1.0); Blood Urea Nitrogen 16 mg/dL (9-16); Calcium 8.5 mg/dL (8.4-10.2); Carbon Dioxide 19 mmol/L (22-29); Chloride 105 mmol/L (96-108); Creatinine Clr Calc Pharmacy 113.4; Estimated Glomerular Filt Rate > 60; Glucose Random 139 mg/dL (60-115); Potassium 5.4 mmol/L (3.3-5.1); Sodium 137 mmol/L (135-145); Total Protein 7.6 g/dL (6.5-8.0)
--- NOTE | 2022-02-19 02:01 | PC.NURSE ---
Pt arrived due to overdose and had received 12mg of Narcan. pt was a&o at time of triage and able to answer question appropriately. While pt was sleeping pt O2 went down into the 70's. pt placed on non-rebreather, respiratory called and at the bedside. pt was able to recover into the mid 90's. Labs and Ua collected and sent. Will continue to monitor.
[2022-02-19 02:10] LABS: Bacteria Urine TRACE /LPF; RBC Urine 0-2 /HPF (0); Squamous Epithelial Cell Urine TRACE /LPF; WBC Urine 0-2 /HPF (0-4)
[2022-02-19 02:14] LABS: Amphetamine Screen Urine Not Detected (Not Detect); Barbiturates, Urine Not Detected (Not Detect); Benzodiazepines Screen Urine Not Detected (Not Detect); Cannabinoid Screen Urine Not Detected (Not Detect); Cocaine Screen Urine Not Detected (Not Detect); Fentanyl, urine POSITIVE (Not Detect); Opiate Screen Urine Not Detected (Not Detect); Phencyclidine Screen Urine Not Detected (Not Detect)
--- NOTE | 2022-02-19 02:21 | PM.IMHP ---
History of Present Illness Date of Service: 02/19/22 Chief Complaint: Accidental overdose S a 31-year-old male with no significant past medical history except for opioid use disorder presents to the hospital with complaints of accidental overdose. According to the patient he was in remission for past 6 months, but today he used to bags of heroin, a snorted a loss consciousness. Patient was given 12 mg of Narcan by by standard according to EMS records, enter nasally and by the time EMS arrived patient was groggy but waking up saturating 96%. Patient reports that he has midsternal pleuritic chest pain worse with cough, he has had coughing, and shortness of breath for the past few days even prior to overdosing, he has felt on and off chills, no chest pain, no abdominal pain nausea or vomiting, no diarrhea constipation, no urinary symptoms and no lower extremity edema On arrival to the ED patient was found to be hypoxic on a non-rebreather satting 89%, he is placed on an OxyMask is now is breathing 95%. His vitals otherwise significant for tachycardia with a heart rate around 102-110, and blood pressure stable. Labs are significant for WBC count of 20.5, potassium 5.4, AST of 148, ALT of 254, UA negative, UDS positive for fentanyl, COVID-19 PCR as well as rapid negative, chest x-ray showed bilateral perihilar infiltrates, greater the right, suggest acute infection inflammatory process. Patient will be admitted for IV antibiotics Review of Systems Review of Systems: Yes all other systems are reviewed and are negative [facility] Medical History IV drug user Family History Father No problems noted. Mother No problems noted. Surgical History No pertinent past surgical history Social History Alcohol intake: current Alcohol intake frequency: holidays/special occasions only Cigarette Packs Per Day: 1 Cigarettes Per Day: 20.0 Substance Use Type: Crack/Cocaine, Heroin, IV Drugs and Opiates Advance Directives: No Advance Directives Information Provided: No Meds Allergies Allergy/AdvReac Type Severity Reaction Status Date / Time No Known Allergies Allergy Verified 11/26/20 13:25 [No Known Allergies*] Active Medications: Current Medications Acetaminophen (Acetaminophen 325 Mg Tablet) 650 mg PO Q6H PRN PRN Reason: Pain, Mild (Pain Scale 1-3) Docusate Sodium (Docusate Sodium 100 Mg Capsule) 100 mg PO DAILY PRN PRN Reason: Constipation Enoxaparin Sodium (Enoxaparin Sodium 40 Mg/0.4 Ml Syringe) 40 mg SUBCUT Q24H [facility] Guaifenesin/Dextromethorphan (Guaifenesin Dm 100/10/5 Ml 5 Ml Syrup) 5 ml PO Q4H PRN PRN Reason: cough Doxycycline Hyclate 100 mg/ (Sodium Chloride) 250 mls @ 166.67 mls/hr IV ONCE ONE Stop: 02/19/22 02:42 Last Admin: 02/19/22 01:59 Dose: 166.67 mls/hr Documented by: Sodium Chloride (Ns) 1,000 mls @ 999 mls/hr IV .Q1H1M ONE Stop: 02/19/22 02:37 Ceftriaxone Sodium 1 gm/ (Sodium Chloride) 50 mls @ 100 mls/hr IV Q24H [facility] Azithromycin 500 mg/ Sodium (Chloride) 250 mls @ 125 mls/hr IV Q24H [facility] Ondansetron HCl (Ondansetron Hcl 4 Mg/2 Ml Vial) 4 mg IVPUSH Q8H PRN PRN Reason: Nausea and Vomiting Sodium Chloride (0.9 % Sodium Chloride Flush 3 Ml Syringe) 3 ml IVFLUSH QSHIFT [facility] Home Medications Medication Instructions Recorded Confirmed Last Taken Type cyclobenzaprine 10 mg tablet 10 mg PO BEDTIME PRN 10/04/20 11/26/20 Unknown History Physical Exam Vital Signs and Narrative: Vital Signs: Last Vital Signs Temp 98.1 F 02/18/22 22:21 Pulse 105 H 02/19/22 02:18 Resp 24 H 02/19/22 02:18 BP 123/78 02/19/22 02:18 Pulse Ox 97 02/19/22 02:18 BMI result Body Mass Index 33.4 Const: General: cooperative and no acute distress Orientation/consciousness: patient oriented x3 Eyes: General: appearance normal, both eyes and all related structures Pupils: Equal, round and reactive pupils present Resp: Other: Bilateral mild clavicles Effort & Inspection: normal respiratory effort Cardio: Rate: regular rate Rhythm: regular rhythm GI: Palpation (GI): Soft to palpation Auscultation: normal bowel sounds Skin: General skin exam: no rashes or lesions noted Neuro: General: patient oriented x3 Cranial nerves: Yes Equal, round and reactive pupils present Cognition (Neuro): normal cognition Extrem: General: Yes normal to inspection and Yes no pedal edema Results Labs CBC and Chem 7: 02/19/22 01:00 02/19/22 01:00 Labs: Laboratory Results - last 24 hr 02/18/22 02/19/22 02/19/22 22:34 01:00 01:00 MCV 86.4 MCH 28.0 MCHC 32.4 RDW 13.5 Plt Count 202 MPV 10.2 Immature Gran % (Auto) 0.7 H Neut % (Auto) 86.5 H Lymph % (Auto) 8.4 L [place] % (Auto) 4.0 Eos % (Auto) 0.1 Baso % (Auto) 0.3 Lymph # (Auto) 1.7 [place] # (Auto) 0.8 Eos # (Auto) 0.0 Baso # (Auto) 0.1 Abs Immat Gran (auto) 0.14 H Absolute Neuts (auto) 17.7 H Absolute Nucleated RBC 0.000 Nucleated RBC % (auto) 0.0 Anion Gap 18 Estim Creat Clear Calc 113.4 Estimated GFR > 60 Random Glucose 139 H D Lactic Acid Calcium 8.5 Total Bilirubin 0.5 AST 148 H ALT 254 H Alkaline Phosphatase 92 D Total Protein 7.6 D Albumin 4.1 D Urine Color Urine Appearance Urine pH Ur Specific [place] Urine Protein Urine Glucose (UA) Urine Ketones Urine Blood Urine Nitrite Ur Leukocyte Esterase Urine RBC Urine WBC Ur Squamous Epith Cells Urine Bacteria Urine Opiates Screen Urine Fentanyl Screen Ur Barbiturates Screen Ur Phencyclidine Scrn Ur Amphetamines Screen U Benzodiazepines Scrn Urine Cocaine Screen U Marijuana (THC) Screen COVID-19 ([facility]) Negative COVID-19 Clin Com See Note Influenza Type A (PCR) Influenza Type B (PCR) RSV RNA Qual (PCR) SARS-CoV-2 RNA (RT-PCR) 02/19/22 02/19/22 02/19/22 01:01 01:13 01:48 MCV MCH MCHC RDW Plt Count MPV Immature Gran % (Auto) Neut % (Auto) Lymph % (Auto) [place] % (Auto) Eos % (Auto) Baso % (Auto) Lymph # (Auto) [place] # (Auto) Eos # (Auto) Baso # (Auto) Abs Immat Gran (auto) Absolute Neuts (auto) Absolute Nucleated RBC Nucleated RBC % (auto) Anion Gap Estim Creat Clear Calc Estimated GFR Random Glucose Lactic Acid 3.3 H* Calcium Total Bilirubin AST ALT Alkaline Phosphatase Total Protein Albumin Urine Color Urine Appearance Urine pH Ur Specific [place] Urine Protein Urine Glucose (UA) Urine Ketones Urine Blood Urine Nitrite Ur Leukocyte Esterase Urine RBC Urine WBC Ur Squamous Epith Cells Urine Bacteria Urine Opiates Screen Not Detected Urine Fentanyl Screen POSITIVE H Ur Barbiturates Screen Not Detected Ur Phencyclidine Scrn Not Detected Ur Amphetamines Screen Not Detected U Benzodiazepines Scrn Not Detected Urine Cocaine Screen Not Detected U Marijuana (THC) Screen Not Detected COVID-19 ([facility]) COVID-19 Clin Com Influenza Type A (PCR) NEGATIVE Influenza Type B (PCR) NEGATIVE RSV RNA Qual (PCR) NEGATIVE SARS-CoV-2 RNA (RT-PCR) NEGATIVE 02/19/22 01:48 MCV MCH MCHC RDW Plt Count MPV Immature Gran % (Auto) Neut % (Auto) Lymph % (Auto) [place] % (Auto) Eos % (Auto) Baso % (Auto) Lymph # (Auto) [place] # (Auto) Eos # (Auto) Baso # (Auto) Abs Immat Gran (auto) Absolute Neuts (auto) Absolute Nucleated RBC Nucleated RBC % (auto) Anion Gap Estim Creat Clear Calc Estimated GFR Random Glucose Lactic Acid Calcium Total Bilirubin AST ALT Alkaline Phosphatase Total Protein Albumin Urine Color YELLOW Urine Appearance CLEAR Urine pH 6.0 Ur Specific [place] >= 1.030 H Urine Protein NEG Urine Glucose (UA) NEG Urine Ketones NEG Urine Blood NEG Urine Nitrite NEG Ur Leukocyte Esterase NEG Urine RBC 0-2 Urine WBC 0-2 Ur Squamous Epith Cells TRACE Urine Bacteria TRACE Urine Opiates Screen Urine Fentanyl Screen Ur Barbiturates Screen Ur Phencyclidine Scrn Ur Amphetamines Screen U Benzodiazepines Scrn Urine Cocaine Screen U Marijuana (THC) Screen COVID-19 ([facility]HA) COVID-19 Clin Com Influenza Type A (PCR) Influenza Type B (PCR) RSV RNA Qual (PCR) SARS-CoV-2 RNA (RT-PCR) Imaging Radiologist's Impressions: Impressions Chest X-Ray 02/18/22 22:42 IMPRESSION: Bilateral perihilar infiltrates, right greater than left, were not seen previously and suggest an acute infectious/inflammatory process. A follow-up chest radiograph following treatment is recommended to assess for resolution. Assessment and Plan (1) Acute respiratory failure with hypoxia: Status: Acute (2) Pneumonia: Status: Acute (3) Drug overdose: Status: Acute (4) IV drug user: Status: Inactive Plan This is a 31-year-old male with past medical history of IV drug use who presents to the hospital after accidental overdose, found to have pneumonia # acute hypoxic respiratory failure - likely secondary to drug overdose complicated by underlying pneumonia - will treat with IV antibiotics, titrate oxygen down as tolerated # pneumonia - likely community-acquired - COVID-19 negative - procalcitonin of 0.1 - treat with IV antibiotics - follow cultures - oxygen as needed # drug overdose - accidental - will consult care team DVT prophylaxis: Lovenox Quality Stroke Does the patient have a stroke diagnosis?: No VTE Prior VTE?: No VTE Risk Level:: Medical - moderate - high VTE Device Contraindication: Treatment Not Indicated VTE Drug Contraindication: N/A - Med Ordered
[2022-02-19] MEDS: Acetaminophen 325 MG TABLET 650 MG PO ×2 (03:00→12:58)
[2022-02-19 03:06] LABS: Reflex Lactate? Lactic Acid Added
--- NOTE | 2022-02-19 03:08 | PC.NURSE ---
Per pt, does not take any medications on daily basis
--- NOTE | 2022-02-19 03:15 | PC.NURSE ---
collected lactic at 0256 and a 0305 lactic was ordered, Doctor said disregard and wait
--- NOTE | 2022-02-19 03:30 | PC.NURSE ---
Pt resting on stretcher, tolerating abx and O2. Pt on oxymask with 15L with O2 sat at 95-97% NAD Will continue to monitor
[2022-02-19 03:31] LABS: Troponin-I High Sensitivity 15.9 ng/L (<3.5-35.0)
[2022-02-19] MEDS: Azithromycin 500 MG in 0.9 % Sodium Chloride 250 ML 125 MG IV ×2 (03:57→22:10)
[2022-02-19] MEDS: Lactated Ringers 1,000 ML 100 ML IVCONT ×2 (03:57→17:11)
[2022-02-19 07:13] LABS: MANUAL DIFF FLAG NO
[2022-02-19 07:16] LABS: Basophils Percent Auto 0.2 % (0-2); Eosinophils Percent Auto 0.2 % (0-4); Hematocrit 42.6 % (42.0-52.0); Imm Gran Abs Auto 0.14 X10*3/uL (0.00-0.03); Imm Gran Pct Auto 0.8 % (0.0-0.4); Lymphocytes Absolute Auto 2.1 X10*3/uL (1.2-4.9); Lymphocytes Percent Auto 11.2 % (20-40); Mean Corpuscular HGB Conc 32.9 g/dl (31.0-36.0); Mean Corpuscular Hemoglobin 28.1 pg (27.0-33.0); Mean Corpuscular Volume 85.5 fL (80.0-98.0); Mean Platelet Volume 10.6 fL (9.4-12.4); Monocytes Absolute Auto 1.2 X10*3/uL (0.1-1.2); Monocytes Percent Auto 6.2 % (2-11); Neutrophils Absolute Auto 15.1 x10*3/uL (2.0-8.3); Neutrophils Percent Auto 81.4 % (45-73); Platelet Count 175 X10*3/uL (160-400); Red Blood Count 4.98 X10*6/uL (4.60-5.80); Red Cell Distribution Width 13.5 % (11.0-16.0); White Blood Count 18.6 X10*3/uL (4.8-10.8)
[2022-02-19 07:29] LABS: Anion Gap 12 (12-20); Blood Urea Nitrogen 14 mg/dL (9-16); Calcium 7.9 mg/dL (8.4-10.2); Carbon Dioxide 20 mmol/L (22-29); Chloride 108 mmol/L (96-108); Creatinine Clr Calc Pharmacy 139.8; Estimated Glomerular Filt Rate > 60; Glucose Random 107 mg/dL (60-115); Potassium 4.5 mmol/L (3.3-5.1); Sodium 135 mmol/L (135-145)
[2022-02-19] MEDS: ondansetron HCL 4 MG/2 ML VIAL IVPUSH (07:45)
[2022-02-19] MEDS: 0.9 % Sodium Chloride Flush 3 ML SYRINGE IVFLUSH (07:46)
[2022-02-19] MEDS: Enoxaparin Sodium 40 MG/0.4 ML SYRINGE SUBCUT (07:46)
--- NOTE | 2022-02-19 07:50 | PC.NURSE ---
pt alert and oriented, skin appropriate for ethnicity, respirations even and unlabored, ls clear. pt is reporting a headache and some nausea at this time, pt reports drinking mostly on the weekends and just relapsed on heroine. pt report that he has never gone into alcohol withdrawal when in the hospital. titrated the oxymask from 11l to 9l and sating at 97%, vs stable, normal sinus on the monitor
--- NOTE | 2022-02-19 09:35 | PHA.MEDREC ---
Pharmacy Consult ? Medication Reconciliation Pharmacy has reviewed the medication reconciliation completed by Kendrick. Xochilt Nesbitt, SivaD
--- NOTE | 2022-02-19 10:00 | PC.NURSE ---
pt titrated on the oxymask down to the 2l, pt sating at 95% pt wanting to ambulate to the bathroom, when he came back oxygen level down to 90%, right back to 95% on the oxymask at 2l
--- NOTE | 2022-02-19 10:05 | MHC.CM.PN ---
Met with patient in regards to discharge planning. Patient lives with his sig other, ambulates independently and had no services prior to coming to the hospital. No services anticipated to be needed because patient is not homebound. Patient has not received any Covid vaccines. Patient has no HCP on file. Patient not interested in completing one at this time. Patient was admitted due to heroin overdose. Patient may benefit from seeing a disaster recovery analyst. Patient requested primary contact be changed to his fianceTanya, [address] [place] [address]. . Patient has requested his mother be removed as a contact. This information has been forwarded to registration. Tanya will transport patient home when medically stable. Continue to monitor for d/c needs.
--- NOTE | 2022-02-19 13:00 | PC.NURSE ---
took the pt of the oxymask at this time, sating at 94% on room air and medicated for a headache with tylenol
--- NOTE | 2022-02-19 13:49 | PM.EVENT ---
Event Note Date of Service: 02/19/22 Event Note: pt seen/examined. Pt admitted intentional use not accidental use of heroin and overdosed resulting in aspiration pneumonia. Encourage cessation. Addiction med consult. Change to PO Augmentin tomorrow and discharge
--- NOTE | 2022-02-19 14:21 | HO.ADDICTCON ---
History of Present Illness Date of Service: 02/19/2022 Chief Complaint: Pneumonia, hypoxia Reason for Consult: opiod overdose Requesting physician: Joao Taylor Discussed with referring provider: No Sources of Information: patient interviewed and chart reviewed HPI Narrative: Patient is a 31 year old male with history of opioid use disorder who presented to [facility] following opioid overdose. Currently medically admitted with pneumonia Per patient he had been in recovery/remission for the last 6 months and used last night for the first time. Care team note reviewed. Patient seen in room 12 of ED. Patients GF present during interview. He was awake, alert, pleasant and engaged in interview. Patient reports that he used to bags last night intranasally. Denies any use prior to that for the last 6 months. Expressing remorse and shame for having used. He denies any withdrawal symptoms or cravings. Was experiencing nausea earlier, that resolved with Zofran. Reports occasional alcohol use, which she identifies as 3 drinks once a week or every other week. Discussed treatment or recovery supports available. Patient reports that he is no interest in initiating buprenorphine or methadone, but he is interested in learning more about naltrexone. Reviewed indications for naltrexone, dosing, potential side effects and goals of treatment. Provided patient with written information regarding naltrexone. Patient identifies his davide as his main support. Review of Systems Constitutional: Reports as per HPI Diagnostics Vital Signs (24Hr): Vital Signs - 24 hr 02/18/22 22:21 02/19/22 00:28 02/19/22 00:44 Temperature 98.1 F Pulse Rate 102 H 108 H 116 H Respiratory Rate 18 20 Blood Pressure 103/68 121/72 116/85 Pulse Oximetry 96 89 L 02/19/22 01:13 02/19/22 01:14 02/19/22 02:18 Temperature Pulse Rate 112 H 116 H 105 H Respiratory Rate 20 20 24 H Blood Pressure 116/85 123/78 Pulse Oximetry 96 97 02/19/22 03:01 02/19/22 03:58 02/19/22 06:08 Temperature 98.6 F 98.2 F Pulse Rate 103 H 89 94 Respiratory Rate 20 18 20 Blood Pressure 119/80 120/57 L 109/61 Pulse Oximetry 97 96 95 02/19/22 07:40 02/19/22 12:56 Temperature Pulse Rate 81 76 Respiratory Rate 20 18 Blood Pressure 110/55 L 108/66 Pulse Oximetry 97 94 BMI result Body Mass Index 33.4 Labs Results: 02/19/22 06:50 02/19/22 06:50 Labs: Laboratory Results - last 48 hr 02/18/22 02/19/22 02/19/22 22:34 01:00 01:00 WBC 20.5 H RBC 6.04 H Hgb 16.9 Hct 52.2 H MCV 86.4 MCH 28.0 MCHC 32.4 RDW 13.5 Plt Count 202 MPV 10.2 Immature Gran % (Auto) 0.7 H Neut % (Auto) 86.5 H Lymph % (Auto) 8.4 L [place] % (Auto) 4.0 Eos % (Auto) 0.1 Baso % (Auto) 0.3 Lymph # (Auto) 1.7 [place] # (Auto) 0.8 Eos # (Auto) 0.0 Baso # (Auto) 0.1 Abs Immat Gran (auto) 0.14 H Absolute Neuts (auto) 17.7 H Absolute Nucleated RBC 0.000 Nucleated RBC % (auto) 0.0 Sodium 137 Potassium 5.4 H D Chloride 105 Carbon Dioxide 19 L Anion Gap 18 BUN 16 Creatinine 1.06 Estim Creat Clear Calc 113.4 Estimated GFR > 60 Random Glucose 139 H D Lactic Acid Calcium 8.5 Total Bilirubin 0.5 AST 148 H ALT 254 H Alkaline Phosphatase 92 D Troponin I High Sens Total Protein 7.6 D Albumin 4.1 D Procalcitonin Urine Color Urine Appearance Urine pH Ur Specific [place] Urine Protein Urine Glucose (UA) Urine Ketones Urine Blood Urine Nitrite Ur Leukocyte Esterase Urine RBC Urine WBC Ur Squamous Epith Cells Urine Bacteria Urine Opiates Screen Urine Fentanyl Screen Ur Barbiturates Screen Ur Phencyclidine Scrn Ur Amphetamines Screen U Benzodiazepines Scrn Urine Cocaine Screen U Marijuana (THC) Screen COVID-19 ([facility]ISHA) Negative COVID-19 Clin Com See Note Influenza Type A (PCR) Influenza Type B (PCR) RSV RNA Qual (PCR) SARS-CoV-2 RNA (RT-PCR) 02/19/22 02/19/22 02/19/22 01:01 01:13 01:48 WBC RBC Hgb Hct MCV MCH MCHC RDW Plt Count MPV Immature Gran % (Auto) Neut % (Auto) Lymph % (Auto) [place] % (Auto) Eos % (Auto) Baso % (Auto) Lymph # (Auto) [place] # (Auto) Eos # (Auto) Baso # (Auto) Abs Immat Gran (auto) Absolute Neuts (auto) Absolute Nucleated RBC Nucleated RBC % (auto) Sodium Potassium Chloride Carbon Dioxide Anion Gap BUN Creatinine Estim Creat Clear Calc Estimated GFR Random Glucose Lactic Acid 3.3 H* Calcium Total Bilirubin AST ALT Alkaline Phosphatase Troponin I High Sens Total Protein Albumin Procalcitonin Urine Color Urine Appearance Urine pH Ur Specific [place] Urine Protein Urine Glucose (UA) Urine Ketones Urine Blood Urine Nitrite Ur Leukocyte Esterase Urine RBC Urine WBC Ur Squamous Epith Cells Urine Bacteria Urine Opiates Screen Not Detected Urine Fentanyl Screen POSITIVE H Ur Barbiturates Screen Not Detected Ur Phencyclidine Scrn Not Detected Ur Amphetamines Screen Not Detected U Benzodiazepines Scrn Not Detected Urine Cocaine Screen Not Detected U Marijuana (THC) Screen Not Detected COVID-19 (KEISHA) COVID-19 Clin Com Influenza Type A (PCR) NEGATIVE Influenza Type B (PCR) NEGATIVE RSV RNA Qual (PCR) NEGATIVE SARS-CoV-2 RNA (RT-PCR) NEGATIVE 02/19/22 02/19/22 02/19/22 01:48 02:56 02:56 WBC RBC Hgb Hct MCV MCH MCHC RDW Plt Count MPV Immature Gran % (Auto) Neut % (Auto) Lymph % (Auto) [place] % (Auto) Eos % (Auto) Baso % (Auto) Lymph # (Auto) [place] # (Auto) Eos # (Auto) Baso # (Auto) Abs Immat Gran (auto) Absolute Neuts (auto) Absolute Nucleated RBC Nucleated RBC % (auto) Sodium Potassium Chloride Carbon Dioxide Anion Gap BUN Creatinine Estim Creat Clear Calc Estimated GFR Random Glucose Lactic Acid 2.0 Calcium Total Bilirubin AST ALT Alkaline Phosphatase Troponin I High Sens 15.9 Total Protein Albumin Procalcitonin Urine Color YELLOW Urine Appearance CLEAR Urine pH 6.0 Ur Specific [place] >= 1.030 H Urine Protein NEG Urine Glucose (UA) NEG Urine Ketones NEG Urine Blood NEG Urine Nitrite NEG Ur Leukocyte Esterase NEG Urine RBC 0-2 Urine WBC 0-2 Ur Squamous Epith Cells TRACE Urine Bacteria TRACE Urine Opiates Screen Urine Fentanyl Screen Ur Barbiturates Screen Ur Phencyclidine Scrn Ur Amphetamines Screen U Benzodiazepines Scrn Urine Cocaine Screen U Marijuana (THC) Screen COVID-19 (KEISHA) COVID-19 Clin Com Influenza Type A (PCR) Influenza Type B (PCR) RSV RNA Qual (PCR) SARS-CoV-2 RNA (RT-PCR) 02/19/22 02/19/22 02/19/22 02:56 06:50 06:50 WBC 18.6 H RBC 4.98 Hgb 14.0 Hct 42.6 MCV 85.5 MCH 28.1 MCHC 32.9 RDW 13.5 Plt Count 175 MPV 10.6 Immature Gran % (Auto) 0.8 H Neut % (Auto) 81.4 H Lymph % (Auto) 11.2 L [place] % (Auto) 6.2 Eos % (Auto) 0.2 Baso % (Auto) 0.2 Lymph # (Auto) 2.1 [place] # (Auto) 1.2 Eos # (Auto) 0.0 Baso # (Auto) 0.0 Abs Immat Gran (auto) 0.14 H Absolute Neuts (auto) 15.1 H Absolute Nucleated RBC 0.000 Nucleated RBC % (auto) 0.0 Sodium 135 Potassium 4.5 Chloride 108 Carbon Dioxide 20 L Anion Gap 12 BUN 14 Creatinine 0.86 Estim Creat Clear Calc 139.8 Estimated GFR > 60 Random Glucose 107 Lactic Acid Calcium 7.9 L D Total Bilirubin AST ALT Alkaline Phosphatase Troponin I High Sens Total Protein Albumin Procalcitonin 0.10 Urine Color Urine Appearance Urine pH Ur Specific [place] Urine Protein Urine Glucose (UA) Urine Ketones Urine Blood Urine Nitrite Ur Leukocyte Esterase Urine RBC Urine WBC Ur Squamous Epith Cells Urine Bacteria Urine Opiates Screen Urine Fentanyl Screen Ur Barbiturates Screen Ur Phencyclidine Scrn Ur Amphetamines Screen U Benzodiazepines Scrn Urine Cocaine Screen U Marijuana (THC) Screen COVID-19 (KEISHA) COVID-19 Clin Com Influenza Type A (PCR) Influenza Type B (PCR) RSV RNA Qual (PCR) SARS-CoV-2 RNA (RT-PCR) Imaging Radiology Impressions: ITS Impressions Chest X-Ray 02/18/22 22:42 IMPRESSION: Bilateral perihilar infiltrates, right greater than left, were not seen previously and suggest an acute infectious/inflammatory process. A follow-up chest radiograph following treatment is recommended to assess for resolution. Mental Status Exam Mental Status Exam Patient Appearance: Appropriate Patient Orientation: Person, Place, Time and Situation Patient Behavior: Appropriate and Cooperative Mood Description: Relaxed Affect Description: Calm Thought Process: Goal Oriented Judgement: Good Medications Medications Current Medications Acetaminophen (Acetaminophen 325 Mg Tablet) 650 mg PO Q6H PRN PRN Reason: Pain, Mild (Pain Scale 1-3) Last Admin: 02/19/22 12:58 Dose: 650 mg Documented by: Docusate Sodium (Docusate Sodium 100 Mg Capsule) 100 mg PO DAILY PRN PRN Reason: Constipation Enoxaparin Sodium (Enoxaparin Sodium 40 Mg/0.4 Ml Syringe) 40 mg SUBCUT Q24H [facility] Last Admin: 02/19/22 07:46 Dose: 40 mg Documented by: Guaifenesin/Dextromethorphan (Guaifenesin Dm 100/10/5 Ml 5 Ml Syrup) 5 ml PO Q4H PRN PRN Reason: cough Ceftriaxone Sodium 1 gm/ (Sodium Chloride) 50 mls @ 100 mls/hr IV Q24H [facility] Azithromycin 500 mg/ Sodium (Chloride) 250 mls @ 125 mls/hr IV Q24H [facility] Lactated Ringer's (Lr) 1,000 mls @ 100 mls/hr IVCONT .Q10H [facility] Last Admin: 02/19/22 03:57 Dose: 100 mls/hr Documented by: Ondansetron HCl (Ondansetron Hcl 4 Mg/2 Ml Vial) 4 mg IVPUSH Q8H PRN PRN Reason: Nausea and Vomiting Last Admin: 02/19/22 07:45 Dose: 4 mg Documented by: Sodium Chloride (0.9 % Sodium Chloride Flush 3 Ml Syringe) 3 ml IVFLUSH QSHIFT [facility] Last Admin: 02/19/22 07:46 Dose: 3 ml Documented by: Allergies Allergies Allergy/AdvReac Type Severity Reaction Status Date / Time No Known Allergies Allergy Verified 11/26/20 13:25 [No Known Allergies*] Assessment & Plan Assessment & Plan (1) Opioid use disorder: Status: Acute Code(s): F11.90 - Opioid use, unspecified, uncomplicated Assessment and Plan: reviewed naltrexone and provided information about medication and providers closer to [facility] (where patient lives) Currently LFTs are elevated, not appropriate to start naltrexone. Will continue to follow and ensure rx at time of discharge, if appropriate. Take home narcan at discharge as well I spent ___50___ minutes with the patient and/or on the patient floor today, greater than?50% of which was spent counseling/coordinating care. FOR[facility]LY [facility], [facility] Past Medical History Medical History IV drug user Family History Family History Father No problems noted. Mother No problems noted. Surgical History Surgical History No pertinent past surgical history Social History Social History Alcohol intake: current Alcohol intake frequency: a few times a week Patient Tobacco Use Status: Current everyday Tobacco user Cigarette Packs Per Day: 1 Cigarettes Per Day: 20.0 Use of substances other than those prescribed or required for medical reasons: Yes Substance Use Type: Heroin Advance Directives: No Advance Directives Information Provided: No service: No Current occupational status: unemployed
--- NOTE | 2022-02-19 14:45 | PC.NURSE ---
when pt falls asleep, oxygen level drops down to 88% on room air, pt put back on the oxymask at 2l
--- NOTE | 2022-02-19 16:26 | PC.NURSE ---
report given to med.surgical training specialist
[2022-02-19] MEDS: guaiFENesin DM 100/10/5 ML 5 ML SYRUP PO (19:42)
[2022-02-20 03:41] VITALS: BP 127/72; PULSE 62; RESP 18; TEMP 36.7; O2SAT 99
[2022-02-20 06:57] LABS: Hematocrit 39.4 % (42.0-52.0); Hemoglobin 12.7 g/dl (14.0-18.0); Mean Corpuscular HGB Conc 32.2 g/dl (31.0-36.0); Mean Corpuscular Volume 86.8 fL (80.0-98.0); Mean Platelet Volume 10.4 fL (9.4-12.4); Platelet Count 127 X10*3/uL (160-400); Red Blood Count 4.54 X10*6/uL (4.60-5.80); Red Cell Distribution Width 13.5 % (11.0-16.0); White Blood Count 7.1 X10*3/uL (4.8-10.8)
[2022-02-20 06:58] VITALS: BP 113/62; PULSE 56; RESP 20; TEMP 36.2; O2SAT 98
--- NOTE | 2022-02-20 07:10 | P.DS_ITS ---
DS: Providers Provider Date of Service: 02/20/22 Date of admission: 02/19/22 02:18 Primary care physician: Unknown Physician Consults: 02/19/22 13:51 Addiction Medicine Routine Consulting Provider: Jasmina Buckley Reason for consultation: Heroin use desorder Has provider been notified: No DS: Diagnosis Discharge Diagnosis (1) Opioid use disorder: Status: Acute DS: Summary Hospital Course Hospital Course: Chief Complaint: Accidental overdose S a 31-year-old male with no significant past medical history except for opioid use disorder presents to the hospital with complaints of accidental overdose.? According to the patient he was in remission for past 6 months, but today he used to bags of heroin, a snorted a loss consciousness.? Patient was given 12 mg of Narcan by by standard according to EMS records, enter nasally and by the time EMS arrived patient was groggy but waking up saturating 96%.? Patient reports that he has midsternal pleuritic chest pain worse with cough, he has had coughi ng, and shortness of breath for the past few days even prior to overdosing, he has felt on and off chills, no chest pain, no abdominal pain nausea or vomiting, no diarrhea constipation, no urinary symptoms and no lower extremity edema On arrival to the ED patient was found to be hypoxic on a non-rebreather satting 89%, he is placed on an OxyMask is now is breathing 95%.? His vitals otherwise significant for tachycardia with a heart rate around 102-110, and blood pressure stable. Labs are significant for WBC count of 20.5, potassium 5.4, AST of 148, ALT of 254, UA negative, UDS positive for fentanyl, COVID-19 PCR as well as rapid negative, chest x-ray showed bilateral perihilar infiltrates, greater the right, suggest acute infection inflammatory process.? Patient will be admitted for IV antibiotics Hospital course: Patient presented after overdosing with heroin, I would not call this an accidental overdose since he intented to use the drug, albeit not to harm himself. As result he aspirated and has aspiriation pneumonia with elevated WBC to 18. He was given Narcan to reverse the opioid and given, Azithro and Ceftriaxone to treat pneumonia. Hypoxia has resolved, WBC has normalized. Vitals are all stable. He will be discharged with Agumentin for aspiration pneumonia and drug use is strictly discouraged.. Addiction medicine saw him and provided him with resources. Time Spent with Patient Time attestation: Total time spent providing and/or coordinating discharge services: Discharge coordination time: Greater than 30 minutes Quality: Stroke Does the patient have a stroke diagnosis?: No Physical Exam Vital Signs: Vital Signs: Last Vital Signs Temp 97.2 F 02/20/22 06:58 Pulse 56 02/20/22 06:58 Resp 20 02/20/22 06:58 BP 113/62 02/20/22 06:58 Pulse Ox 98 02/20/22 06:58 BMI result Body Mass Index 33.4 DS: Data Data Completed and Pending Labs on day of discharge: Laboratory Results - last 24 hr 02/19/22 02/19/22 02/20/22 06:50 06:50 06:40 WBC 18.6 H 7.1 RBC 4.98 4.54 L Hgb 14.0 12.7 L Hct 42.6 39.4 L MCV 85.5 86.8 MCH 28.1 28.0 MCHC 32.9 32.2 RDW 13.5 13.5 Plt Count 175 127 L D MPV 10.6 10.4 Immature Gran % (Auto) 0.8 H Neut % (Auto) 81.4 H Lymph % (Auto) 11.2 L [place] % (Auto) 6.2 Eos % (Auto) 0.2 Baso % (Auto) 0.2 Lymph # (Auto) 2.1 [place] # (Auto) 1.2 Eos # (Auto) 0.0 Baso # (Auto) 0.0 Abs Immat Gran (auto) 0.14 H Absolute Neuts (auto) 15.1 H Absolute Nucleated RBC 0.000 0.000 Nucleated RBC % (auto) 0.0 0.0 Sodium 135 Potassium 4.5 Chloride 108 Carbon Dioxide 20 L Anion Gap 12 BUN 14 Creatinine 0.86 Estim Creat Clear Calc 139.8 Estimated GFR > 60 Random Glucose 107 Calcium 7.9 L D Preliminary micro results at discharge 02/19/22 01:19 Blood Culture - Preliminary Blood - Venous No growth after 24 hours. 02/19/22 01:00 Blood Culture - Preliminary Blood - Venous No growth after 24 hours. Discharge Plan Discharge Anticipated Discharge Date/Time: 02/20/22 07:05 Patient Disposition: Home, Self-Care Discharge Diagnosis: Aspiration pneumonia, opioid overdose Referrals: Physician,Unknown J [Primary Care Provider] - 1 Week Discharge Medications: New amoxicillin-pot clavulanate 875-125 mg tablet 1 tab PO BID Qty: 10 0RF No Action ibuprofen 800 mg tablet 800 mg PO Q8H PRN (Reason: pain) Qty: 14 0RF Diet: advance to usual diet Activity on Discharge: As tolerated Stand Alone Forms: Patient Portal Discharge page Care Plan Goals: resoulition of pneumonia and abstinence from drugs Health Concerns: Opioid dependence Plan of Treatment: Take Augmentin as recommended and follow up with your Doctor in a week Avoid iliciti substaces including opioid Assessment: as above
--- NOTE | 2022-02-20 10:17 | MHC.CM.PN ---
Addendum entered by Brigette Mchugh RN 02/20/22 10:25: CM MET W/PT REGARDING INSURANCE, PT REPORTS HE WAS ON COBRA HOWEVER DOES NOT BELIEVE HE STILL IS, PT GIVEN CONTACT INFO FOR FINANCIAL SERVICES FOR ASSISTANCE W/SIGNING UP FOR MH, PT REPORTS HE PLANS ON CALLING OR DROPPING SO HE CAN GET ON MH. Original Note: PT MEDICALLY CLEARED FOR D/C HOME NO SERVICES, FAMILY AT BEDSIDE AND WILL TRANSPORT PT HOME.
== END 2022-02-20 10:32 | disposition home or self-care (01) | DRG 917 ==
LOC: HO.ED 02-19 01:24 → HO.EDOVER 02-19 02:25 → HO.S3 02-19 14:32
PROVIDERS: Admitting Provider Internal Medicine; Emergency Provider Internal Medicine; PCP Internal Medicine; Visit Provider Internal Medicine
DX: T40.1X1A Poisoning by heroin, accidental (unintentional), initial encounter (principal); J96.01 Acute respiratory failure with hypoxia; F11.20 Opioid dependence, uncomplicated; F17.210 Nicotine dependence, cigarettes, uncomplicated; Z71.6 Tobacco abuse counseling; Z20.822 Contact with and (suspected) exposure to COVID-19
CPT/HCPCS: 0241U; 36415; 71045; 80048; 80053; 80307; 81001; 83605; 84145; 84484; 85025; 85027; 87040; 87635; 93005; 94640; 96361; 96374; 96375; 99285; J0456; J0696; J1650; J2405

== ENCOUNTER 2023-07-13 10:31 | Outpatient (AMB) | payer OTHER, SELFPAY ==
--- NOTE | 2023-07-13 10:32 | A.OFFPC_ITS ---
Vital Signs 07/13/23 10:34 Height 5 ft 10 in Weight 275 lb 4 oz BMI 39.5 BP 110/69 Blood Pressure Location Lt brachial Position Sitting Pulse 74 Pulse Source Pulse Oximeter Pulse Oximetry (%) 95 Oxygen Delivery Method Room Air Intake Visit Reasons: Hepatitis C Intake Note: Patient is here today for medication review. Patient was recently diagnose with Hep C and would like treatment. 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: Not Required per policy Accompanied by: Self / Same As Patient Allergies ketamine Adverse Reaction (Severe, Verified 07/13/23 10:33) psychosis Tobacco use date assessed: 07/13/23 Dental Screening Dental Screen Date: 07/13/23 Did you have a dental visit in the last 12 months?: No Did you have a dental problem in the last 6 months where you did not have access to dental care?: No Was dental information given to patient?: No HPI Hepatitis C HPI Details recently told he is Hep c positive; on methadone for substance abuse- heroin injection PFSH Medical History IV drug user Surgical History No pertinent past surgical history Family History (Updated 07/13/23 @ 10:32 by ARMINDA Jane) Father No problems noted. Mother No problems noted. Social History (Updated 07/13/23 @ 10:39 by ARMINDA Jane) Household Members: Significant Other Housing: House Do you presently have visiting nurse or other home services: No Alcohol intake: current Alcohol intake frequency: 0-2 drinks per day Patient Tobacco Use Status: Current everyday Tobacco user Tobacco use type: Cigarette Cigarette Packs Per Day: 1 Cigarettes Per Day: 20.0 Years Smoked: 17 e-Cigarette/Vaping Use: Never Used Second Hand Smoke Exposure: Yes Substance Use Type: Heroin service: No Current occupational status: unemployed Cognitive needs: No Hearing needs: No Vision needs: No Questionnaire PHQ-9 Over the last 2 weeks, how often have you been bothered by any of the following problems? 1. Little interest or pleasure in doing things: several days 2. Feeling down, depressed, or hopeless: several days 3. Trouble falling or staying asleep, or sleeping too much: not at all 4. Feeling tired or having little energy: nearly every day 5. Poor appetite or overeating: more than half the days 6. Feeling bad about yourself - or that you are a failure or have let yourself or your family down: several days 7. Trouble concentrating on things, such as reading the newspaper or watching television: several days 8. Moving or speaking so slowly that other people could have noticed. Or the opposite - being so fidgety or restless that you have been moving around a lot more than usual: not at all 9. Thoughts that you would be better off or of hurting yourself in some way: not at all Total score: 9 Source: Developed by Drs. Wilder Villagran, Starr Apple, Vernon Fung and colleagues, with an educational brian from [employer]. Thrive Questionnaire Date Thrive assessed: 07/13/23 I am a: Patient What is your living situation today?: I have a steady place to live Within the past 12 months, did the food you bought not last and you didn't have the money to get more?: Never true Within the past 12 months, did you worry whether your food would run out before you got money to buy more?: Never true Do you have trouble paying for medicines?: No Do you have trouble getting transportation to medical appointments?: No Do you have trouble paying your heating and electricity bill?: No Do you have trouble taking care of your child, family member or friend?: No Do you have trouble with day-to-day activities such as bathing, preparing meals, shopping, managing finances, etc.?: No Are you currently unemployed and looking for a job?: No Are you interested in more education?: No Currently or been in a relationship where the following occur: no concerns reported AUDIT C Alcohol Use Questionnaire (AUDIT-C) 1. How often do you have a drink containing alcohol?: 4 or more times a week 2. How many drinks containing alcohol do you have on a typical day when you are drinking?: 1 or 2 Total Score: 4 BRIGHT-7 AMB Questionnaire BRIGHT-7 Date BRIGHT - 7 assessed: 07/13/23 Feeling nervous, anxious, or on edge: 3 = Nearly every day Not being able to stop or control worryin = More than half the days Worrying too much about different things: 2 = More than half the days Trouble relaxin = More than half the days Being so restless that it is hard to sit still: 1 = Several days Becoming easily annoyed or irritable: 1 = Several days Feeling afraid as if something awful might happen: 0 = Not at all Total BRIGHT-7 score (0-4 normal; 5-9 mild; 10-14 moderate; 15-21 severe): 11 Source: Developed by Drs. Wilder Villagran, Starr Apple, Vernon Fung and colleagues, with an educational brian from [employer]. Review of Systems Const Denies chills, Denies headache(s) and Denies weight loss ENT Denies headache(s) Card Denies chest pain, Denies syncope, Denies irregular heart rhythm and Denies dyspnea Resp Denies chest congestion, Denies cough and Denies dyspnea GI Denies abdominal pain, Denies change in stool character, Denies nausea and Denies vomiting Musc Denies deformity and Denies joint swelling Neuro Denies syncope and Denies headache(s) Physical exam (Primary Care) Vital Signs: Last Vital Signs Pulse 74 07/13/23 10:34 BP 110/69 07/13/23 10:34 Pulse Ox 95 07/13/23 10:34 Oxygen Delivery Method Room Air 07/13/23 10:34 BMI result Body Mass Index 39.5 Tobacco/Smoking Status: Tobacco use Status Tobacco use date assessed 07/13/23 07/13/23 10:42 Patient Tobacco Use Status Current everyday Tobacco 07/13/23 10:42 Tobacco use type Cigarette 07/13/23 10:42 e-Cigarette/Vaping Use Never Used 07/13/23 10:42 PHQ-9: PHQ-9 Score PHQ-9: Total score 9 07/13/23 10:42 Thrive Assessment: Date of Thrive Assessment Date Thrive assessed 07/13/23 07/13/23 10:42 Currently or been in a relationship where the following occur: no concerns reported Const General: cooperative, comfortable and no acute distress HENMT Head: Yes normal to inspection Neck Neck: Yes normal visual inspection Chest Chest palpation & inspection: normal inspection of the chest Assessment and Plan Assessment & Plan (1) Hepatitis C: Code(s): B19.20 - Unspecified viral hepatitis C without hepatic coma Plan: viral load and gi ref Orders: Orders Comprehensive Muse. Panel Fast Today N28.9 - Disorder of kidney and ureter, unspecified Lipid Panel Today E78.5 - Hyperlipidemia, unspecified Thyroid Stimulating Hormone Today E03.9 - Hypothyroidism, unspecified Complete Blood Count Auto Diff Today D64.9 - Anemia, unspecified Hepatitis C Antibody Today Z20.2 - Contact with and (suspected) exposure to infections with a predominantly sexual mode of transmission Hepatitis C Viral Load Today B19.20 - Unspecified viral hepatitis C without hepatic coma Referrals Gastroenterology Referral B19.20 - Unspecified viral hepatitis C without hepatic coma Coding Level of Care Code Est Pt Level 3 (70381) Diagnoses Hepatitis C B19.20
[2023-07-13 10:34] VITALS: BP 110/69; PULSE 74; O2SAT 95; BMI 39.5
== END 2023-07-13 10:54 | disposition home or self-care (01) ==
PROVIDERS: PCP Internal Medicine; Visit Provider Internal Medicine
DX: B19.20 Unspecified viral hepatitis C without hepatic coma (principal)
CPT/HCPCS: 99213

== ENCOUNTER 2023-07-31 12:38 | Outpatient (REF) | payer OTHER, SELFPAY ==
[2023-07-31 13:03] LABS: MANUAL DIFF FLAG NO
[2023-07-31 13:56] LABS: Basophils Absolute Auto 0.1 X10*3/uL (0.0-0.2); Basophils Percent Auto 0.6 % (0-2); Eosinophils Absolute Auto 0.2 X10*3/uL (0.0-0.4); Eosinophils Percent Auto 1.6 % (0-4); Hematocrit 47.4 % (42.0-52.0); Hemoglobin 15.2 g/dl (14.0-18.0); Imm Gran Abs Auto 0.04 X10*3/uL (0.00-0.03); Imm Gran Pct Auto 0.4 % (0.0-0.4); Lymphocytes Absolute Auto 1.8 X10*3/uL (1.2-4.9); Lymphocytes Percent Auto 15.3 % (20-40); Mean Corpuscular HGB Conc 32.1 g/dl (31.0-36.0); Mean Corpuscular Hemoglobin 27.4 pg (27.0-33.0); Mean Corpuscular Volume 85.6 fL (80.0-98.0); Mean Platelet Volume 11.5 fL (9.4-12.4); Monocytes Absolute Auto 0.5 X10*3/uL (0.1-1.2); Monocytes Percent Auto 4.5 % (2-11); Neutrophils Absolute Auto 8.9 x10*3/uL (2.0-8.3); Neutrophils Percent Auto 77.6 % (45-73); Platelet Count 166 X10*3/uL (160-400); Red Blood Count 5.54 X10*6/uL (4.60-5.80); Red Cell Distribution Width 13.6 % (11.0-16.0); White Blood Count 11.4 X10*3/uL (4.8-10.8)
[2023-07-31 14:50] LABS: Alanine Aminotransferase 170 U/L (0-40); Albumin Level 3.7 g/dL (3.5-5.0); Alkaline Phosphatase 108 U/L (39-117); Anion Gap 15 (12-20); Aspartate Amino Transferase 133 U/L (5-37); Bilirubin Total 0.5 mg/dL (0.0-1.0); Blood Urea Nitrogen 15 mg/dL (9-16); Carbon Dioxide 18 mmol/L (22-29); Chloride 106 mmol/L (96-108); Cholesterol 105 mg/dL (<200); Estimated Glomerular Filt Rate > 60; Glucose Fasting 107 mg/dL (60-99); HDL Cholesterol 25 mg/dL (>40); LDL Cholesterol Calculated 47 mg/dL (<100); Sodium 135 mmol/L (135-145); Thyroid Stimulating Hormone 0.48 uIU/mL (0.32-4.0); Total Protein 7.4 g/dL (6.5-8.0); Triglycerides 166 mg/dL (<150)
[2023-08-01 14:34] LABS: ~HepC Num1 7.74 S/CO (0.00-0.79); ~Hepatitis C Antibody Reactive (Nonreactive)
[2023-08-05 11:18] LABS: HCV Log PCR 6.64 Log IU/mL (NOT DETECTED); HepC Viral Load 4400000 IU/mL (NOT DETECTED)
== END 2023-07-31 12:39 | disposition home or self-care (01) ==
LOC: HO.LAB 12:38
PROVIDERS: PCP Internal Medicine; Visit Provider Internal Medicine
DX: N52.9 Male erectile dysfunction, unspecified (principal); N28.9 Disorder of kidney and ureter, unspecified; E78.5 Hyperlipidemia, unspecified; D64.9 Anemia, unspecified; E03.9 Hypothyroidism, unspecified; Z20.2 Contact with and (suspected) exposure to infections with a predominantly sexual mode of transmission; B19.20 Unspecified viral hepatitis C without hepatic coma
CPT/HCPCS: 36415; 80053; 80061; 84402; 84403; 84443; 85025; 86803; 87522

== ENCOUNTER 2023-08-24 15:14 | Outpatient (AMB) | payer OTHER, SELFPAY ==
[2023-08-24 15:26] VITALS: BP 146/96; PULSE 79; BMI 39.5
--- NOTE | 2023-08-24 15:26 | MHC.OFFVIS ---
Intake Vital Signs 08/24/23 15:26 Height 5 ft 10 in Weight 275 lb 9.245 oz BMI 39.5 BP 146/96 H Blood Pressure Location Lt brachial Position Sitting Pulse 79 Intake Visit Reasons: Hep C Intake Note: Osman presents in the office as a new patient Hep C. CC: He states that he is here today for Hep C. He has had issues and not sure if they are things related to Hep C. Irregular BMs, He has been very lethargic and tired all of the time. Allergies ketamine Adverse Reaction (Severe, Verified 08/24/23 15:30) psychosis HPI HPI Comments History of Present Illness Details 33 y.o F with PMH of opiate use disorder who is here for chronic HCV. Pt reports having first found about having HCV in 2016 when he was checked for HCV Ab by a detox facility. Likely acquired by IVDU has hx of sharing needles. Last use of heroin and cocaine was almost 2 months ago. Pt also drinks etOH 3-8 drinks of hard liquor x year. 1PPD smoking hx x 20 years. Sexually active but reports being monogamous - uses protection on and off. No fam hx of liver disease. Most recently, had labs checked by methadone clinic again 6 months ago and was told has chronic HCV infection for which he is interested in treatment. [facility] Medical History IV drug user Surgical History No pertinent past surgical history Family History Father No problems noted. Mother No problems noted. Social History Household Members: Significant Other Housing: House Do you presently have visiting nurse or other home services: No Alcohol intake: current Alcohol intake frequency: 0-2 drinks per day Patient Tobacco Use Status: Current everyday Tobacco user Tobacco use type: Cigarette Cigarette Packs Per Day: 1 Cigarettes Per Day: 20.0 Years Smoked: 17 e-Cigarette/Vaping Use: Never Used Second Hand Smoke Exposure: Yes Substance Use Type: Heroin service: No Current occupational status: unemployed Cognitive needs: No Hearing needs: No Vision needs: No Review of Systems Const All systems reviewed & are unremarkable except as noted in HPI and below Physical Exam Vital Signs: Last Vital Signs Pulse 79 08/24/23 15:26 BP 146/96 H 08/24/23 15:26 BMI result Body Mass Index 39.5 Gen appear: NAD HEENT: nonicteric, no cervical lymphadenopathy Chest: CTA CVS: Regular S1/S2 Abd: soft, nontender, nondistended, bowel sounds + Ext: no peripheral edema Neuro: A/Ox3, noted to move all extremities spontaneously Psych: interacting appropriately Assessment & Plan Assessment & Plan (1) Hepatitis C: Code(s): B19.20 - Unspecified viral hepatitis C without hepatic coma Plan Hx of chronic HCV - unknown genotype Tx naiive. Will need to determine whether has coinfection with HBV or HIV. Will also need a fibrosure and US Abd prior to treatment laureano as Fib-4 of 2.15 suggestive of advanced fibrosis. Pt was also counseled extensively re modes of transmission, educated re clean/safe needle use and risk of reinfection if continues with IVDU. He was also advised on avoiding further progression of liver disease through other factors including etOH and non-etOH fatty liver (BMI almost 40). Plan: - Labs and US ordered - Based on results, will likely need treatment with mavyret or epclusa - Indication of EGD based on fibrosure and US Abd results - Polysubstance use disorder counseling done as above - Follow up in 6 weeks, can review referral to comprehensive care center if continues to have barriers to etOH and substance use abstinence at that time. Orders: Orders Hepatitis B Surface Antibody Today B19.20 - Unspecified viral hepatitis C without hepatic coma Complete Blood Count no Diff Today B19.20 - Unspecified viral hepatitis C without hepatic coma Hepatitis A IgG Today B19.20 - Unspecified viral hepatitis C without hepatic coma Hepatitis B Core Antibody Today B19.20 - Unspecified viral hepatitis C without hepatic coma Hepatitis B Surface Antigen Today B19.20 - Unspecified viral hepatitis C without hepatic coma Hepatitis C Genotype Today B19.20 - Unspecified viral hepatitis C without hepatic coma US abdomen complete Today B19.20 - Unspecified viral hepatitis C without hepatic coma Liver Fibrosis Pnl Today B19.20 - Unspecified viral hepatitis C without hepatic coma HIV Ab/Ag Today B19.20 - Unspecified viral hepatitis C without hepatic coma Prothrombin Time INR Today B19.20 - Unspecified viral hepatitis C without hepatic coma Liver Panel Today B19.20 - Unspecified viral hepatitis C without hepatic coma Coding Level of Care Code New Pt Level 4 (10603) Diagnoses Hepatitis C B19.20
== END 2023-08-24 16:18 | disposition home or self-care (01) ==
PROVIDERS: PCP Internal Medicine; Visit Provider Internal Medicine
DX: B19.20 Unspecified viral hepatitis C without hepatic coma (principal)
CPT/HCPCS: 99204

== ENCOUNTER → 2023-08-24 15:14 | Outpatient (BNVA) | payer OTHER, SELFPAY | PROVIDERS: PCP Internal Medicine; Visit Provider Internal Medicine ==

== ENCOUNTER 2023-10-07 08:47 | Outpatient (REF) | payer OTHER, SELFPAY ==
--- NOTE | ~2023-10-07 | US_ITS ---
EXAMINATION: US ABDOMEN COMPLETE CLINICAL INFORMATION: Unspecified viral hepatitis C without hepatic coma. COMPARISON: None available. TECHNIQUE: Real-time imaging of the abdominal viscera. Technically extremely limited study secondary to bowel gas and body habitus. FINDINGS: PANCREAS: Obscured. ABDOMINAL AORTA: Obscured. INFERIOR VENA CAVA: Obscured. LIVER: The liver is normal in size. The liver contour is normal. There is diffuse increased liver parenchymal echogenicity, consistent with hepatic steatosis. No definite focal lesion is seen, but evaluation is limited due to poor sound beam penetration through the coarse echogenic liver parenchyma. There is no intrahepatic biliary duct dilatation seen. GALLBLADDER: Not visualized. COMMON BILE DUCT: Normal in caliber measuring 0.3 cm in diameter. RIGHT KIDNEY: No hydronephrosis. No renal calculi or focal parenchymal lesions. The kidney measures 11.0 cm in maximum dimension. LEFT KIDNEY: No hydronephrosis. No renal calculi or focal parenchymal lesions. The kidney measures 11.8 cm in maximum dimension. SPLEEN: The spleen measures 12.0 cm in maximum dimension. FREE FLUID: None. US/US abdomen complete IMPRESSION: Technically limited study. Hepatic steatosis.
== END 2023-10-07 08:48 | disposition home or self-care (01) ==
LOC: HO.HMGCX 08:47
PROVIDERS: PCP Internal Medicine; Visit Provider Internal Medicine
DX: B19.20 Unspecified viral hepatitis C without hepatic coma (principal)
CPT/HCPCS: 76700

== ENCOUNTER 2024-02-08 19:44 | Emergency (ER) | payer MEDICAID, SELFPAY ==
--- NOTE | ~2024-02-08 | XR_ITS ---
EXAMINATION: XR HAND/WRIST, LEFT CLINICAL INFORMATION: Glass foreign body laceration. COMPARISON: None TECHNIQUE: PA, lateral, and oblique views of the left hand and wrist. FINDINGS: There is soft tissue laceration along the radial aspect of the wrist. There is a small radiopaque round fragment in between the first and second metacarpal interspace. No visible fracture or bony abnormality seen. XR/XR hand wrist LT IMPRESSION: Soft tissue laceration along the radial aspect of the wrist. There is a small radiopaque metallic foreign body in the first interspace between the first and second metacarpals.
[2024-02-08 19:55] VITALS: BP 134/94; PULSE 106; RESP 18; TEMP 35.4; O2SAT 96; BMI 38.4
--- NOTE | 2024-02-08 19:55 | ED_ITS ---
HPI - General Adult General Chief complaint: Wound/Laceration Stated complaint: cut wrist/hand on glass, still bleeding Time Seen by Provider: 02/08/24 20:31 Source: patient Mode of arrival: ambulatory Limitations: no limitations History of Present Illness HPI narrative: Patient is a 33-year-old male who presents emergency department for evaluation of a laceration to the left wrist/forearm, accidental in nature sustained from a glass window. Reports he was attempting to set up a toy for his cat that suctions to glass, he attempted to attach this to a glass on the [place] doors in his home, and after light pressure his hand when completely through the glass which shattered and he pulled the hand back out resulting in the lacerations. He is unaware of the date of his last tetanus vaccination. Denies numbness tingling or cold sensation to the hand. Denies use of anticoagulants or known coagulation disorders. Related Data Home Medications Medication Instructions Recorded Confirmed acetaminophen 325 mg tablet 650 mg PO Q6H 08/24/23 ibuprofen 600 mg tablet 600 mg PO TID 08/24/23 methadone 10 mg/mL oral concentrate 115 mg PO Q4H 08/24/23 Previous Rx's Medication Instructions Recorded cephalexin 500 mg capsule 500 mg PO QID #28 caps 02/09/24 Allergies Allergy/AdvReac Type Severity Reaction Status Date / Time ketamine AdvReac Severe psychosis Verified 02/08/24 19:55 Review of Systems 2 Review of Systems: Yes all other systems are reviewed and are negative [facility] Past Medical History Attestation statement: The following information was validated with the patient. Source: old records reviewed Medical History IV drug user Surgical History No pertinent past surgical history Family History Family History Father No problems noted. Mother No problems noted. Social History Social History Household Members: Significant Other Housing: House Do you presently have visiting nurse or other home services: No Alcohol intake: current Alcohol intake frequency: 0-2 drinks per day Patient Tobacco Use Status: Current everyday Tobacco user Tobacco use type: Cigarette Cigarette Packs Per Day: 1 Cigarettes Per Day: 20.0 Years Smoked: 17 e-Cigarette/Vaping Use: Never Used Second Hand Smoke Exposure: Yes Substance Use Type: Heroin Advance Directives: No Advance Directives Information Provided: No service: No Current occupational status: unemployed Cognitive needs: No Hearing needs: No Vision needs: No Physical Exam ED Vital Signs: Vital Signs - 24 hr 02/08/24 19:55 02/08/24 21:47 02/08/24 22:02 Temperature 95.7 F L Pulse Rate 106 H Respiratory Rate 18 20 20 Blood Pressure 134/94 H Pulse Oximetry 96 Oxygen Delivery Method Room Air 02/09/24 00:55 Temperature 97 F Pulse Rate 89 Respiratory Rate 18 Blood Pressure 128/62 Pulse Oximetry 97 Oxygen Delivery Method Room Air BMI result Body Mass Index 38.4 Appearance: Alert.?Oriented to person, place and time. No acute distress.?Normal affect. Neck: Normal inspection.? Neck supple.?? CVS: Heart sounds normal. Normal heart rate and rhythm.? Pulses normal.?? Respiratory: No respiratory distress.? Lung sounds clear to auscultation bilaterally?? Skin: Skin warm and dry.? Normal skin color.? Complex laceration involving the radial aspect of the left forearm extending over the base of the thumb with arterial bleeding Extremities: No extremity edema.? Neuro: Moves all extremities spontaneously. Sensation intact bilaterally. Ambulates with normal steady gait. Course Course Course Narrative: RME: 33-year-old male presents to ED for large left hand wrist laceration caused by glass while trying to fix a Cat toy. Patient can move wrist and feel fingers. Patient brought to [facility]. Laceration rewrapped. X-ray ordered. Patient up-to-date with tetanus Medications Administered Discontinued Medications Generic Name Dose Route Start Last Admin Trade Name Freq PRN Reason Stop Dose Admin Cephalexin HCl 500 mg 02/09/24 00:31 02/09/24 00:52 Cephalexin 500 Mg Capsule PO 02/09/24 00:32 500 mg ONCE ONE Administration Diphtheria/Tetanus/Acell Pertussis 0.5 ml 02/08/24 23:06 02/09/24 00:32 Diphth,Pertus(Acell),Tet Adult 0.5 Ml Syringe IM 02/08/24 23:07 0.5 ml .ONCE ONE Administration Ibuprofen 600 mg 02/09/24 00:31 02/09/24 00:52 Ibuprofen 600 Mg Tablet PO 02/09/24 00:32 600 mg ONCE ONE Administration Lidocaine HCl 5 ml 02/08/24 21:09 02/08/24 21:45 Lidocaine Hcl 1 % Mpf 5 Ml Vial SUBCUT 02/08/24 21:10 5 ml ONCE ONE Administration Lidocaine HCl 30 ml 02/08/24 23:02 02/08/24 22:10 Lidocaine Hcl 1 % 20 Ml Vial INFILTRATI 02/08/24 23:03 30 ml ONCE ONE Administration Lidocaine HCl 5 ml 02/08/24 23:06 02/08/24 21:45 Lidocaine Hcl 1 % Mpf 5 Ml Vial SUBCUT 02/08/24 23:07 5 ml ONCE ONE Administration Morphine Sulfate 4 mg 02/08/24 23:05 02/08/24 21:47 Morphine Sulfate 4 Mg/Ml Cartridge IM 02/08/24 23:06 4 mg ONCE ONE Administration Protocol Morphine Sulfate 4 mg 02/08/24 23:05 02/08/24 22:02 Morphine Sulfate 4 Mg/Ml Cartridge IM 02/08/24 23:06 4 mg ONCE ONE Administration Protocol Procedures Laceration Laceration 1: Site: upper extremity Side (If applicable): left Size (cm): 15 Description: flap and irregular Depth: involves muscle layer Local Anesthetic: lidocaine 1% Amount of anesthesia used (mL): 15 Pre-repair: wound explored and irrigated extensively Skin layer closed with: nylon Size (cm): 3-0 Number of sutures: 32 Technique: simple, interrupted Subcutaneous layer closed with: vicryl Size: 3-0 Number of sutures: 4 Technique: simple, interrupted Muscle layer closed with: vicryl Size: 3-0 Number of sutures: 2 Technique: horizontal mattress Medical Decision Making Medical Decision Making MDM Narrative: Patient is a 33-year-old male presents emergency department for evaluation of an accidental laceration to the left forearm/hand as per HPI. XR reveals no acute osseous abnormality. Complex laceration with extensive irrigation of Betadine and saline, was repaired as per procedural section of this note, required arterial suturing by ED attending Dr. Wharton. CBC was obtained no acute anemia or thrombocytopenia. Tdap was updated. Received Keflex while in the ED. XR reveals a radiopaque metallic foreign body in the 1st interspace between the 1st and 2nd metacarpals, upon examination do not feel that this is from the current laceration patient has a circular scar over this region of the hand, he reports this is secondary to prior IV drug use, to his knowledge does not recall what may be retained. Discussed strict return precautions. All questions answered. Stable for discharge. Differential Diagnosis Differential Diagnoses: The differential diagnosis associated with the presentation includes (Arterial laceration, retained foreign body, neurovascular compromise, complex laceration, tetanus exposure) Admission/Observation Consideration of admission/observation: Escalation of care including admission/observation considered (Bleeding controlled, no indication for admission) Lab Data MDM Lab Attestation statement: I reviewed the patient's lab results. (See narrative above) 02/08/24 23:16 Labs: Lab Results 02/08/24 Range/Units 23:16 WBC 10.0 (4.8-10.8) X10*3/uL RBC 5.15 (4.60-5.80) X10*6/uL Hgb 14.8 (14.0-18.0) g/dl Hct 44.9 (42.0-52.0) % MCV 87.2 (80.0-98.0) fL MCH 28.7 (27.0-33.0) pg MCHC 33.0 (31.0-36.0) g/dl RDW 15.1 (11.0-16.0) % Plt Count 156 L (160-400) X10*3/uL MPV 10.9 (9.4-12.4) fL Immature Gran % (Auto) 0.6 H (0.0-0.4) % Neut % (Auto) 71.1 (45-73) % Lymph % (Auto) 19.2 L (20-40) % [place] % (Auto) 6.7 (2-11) % Eos % (Auto) 1.6 (0-4) % Baso % (Auto) 0.8 (0-2) % Lymph # (Auto) 1.9 (1.2-4.9) X10*3/uL [place] # (Auto) 0.7 (0.1-1.2) X10*3/uL Eos # (Auto) 0.2 (0.0-0.4) X10*3/uL Baso # (Auto) 0.1 (0.0-0.2) X10*3/uL Abs Immat Gran (auto) 0.06 H (0.00-0.03) X10*3/uL Absolute Neuts (auto) 7.1 (2.0-8.3) x10*3/uL Absolute Nucleated RBC 0.000 (0.0-0.012) X10*3/uL Nucleated RBC % (auto) 0.0 (0.0-0.2) /100WBC Independent Interpretation I performed an independent interpretation of an: Plain X-Ray (No acute fracture, radiopaque foreign body) Radiology Impression Discussion of test interpretation with radiology: I have reviewed the radiologist's reading. Radiologist Impression: XR/XR hand wrist LT IMPRESSION: Soft tissue laceration along the radial aspect of the wrist. There is a small radiopaque metallic foreign body in the first interspace between the first and second metacarpals. Independent Historian Clinical information obtained from an independent historian. History obtained from or confirmed by: Spouse (Present who confirms history) Prescription Management I considered prescription management with: Pain Medication and Antibiotic Critical Care Time Critical Care Time Critical Care Time: Yes Total Critical Care Time: 60 Attestation: I personally attest to this critical care time spent taking care of the patient exclusive of all other billable procedures was approximately 60 minutes including initial evaluation of patient, ordering tests, x-ray interpretation, arterial suturing, medical consultation, documentation, re-evaluation. Discharge Plan Discharge Clinical Impression: Laceration Patient Disposition: Home, Self-Care Instructions: Laceration (ED) Additional Instructions: Stitches will need to be removed in 7-10 days. Return back to emergency department follow-up with your primary care provider Complete the entire course of antibiotics as described. Wound should be re-evaluated if you develop any fevers, chills, redness, swelling, pus-like drainage, increased pain, decreased movement to the hand/wrist. Prescriptions: New cephalexin 500 mg capsule 500 mg PO QID Qty: 28 0RF No Action ibuprofen 600 mg tablet 600 mg PO TID acetaminophen 325 mg tablet 650 mg PO Q6H methadone 10 mg/mL concentrate 115 mg PO Q4H Referrals: Ben Foss MD [Primary Care Provider] - Discharge Date/Time: 02/09/24 01:00
[2024-02-08] MEDS: Lidocaine HCl 1 % MPF 5 ML VIAL SUBCUT ×2 (21:45)
[2024-02-08 21:47] VITALS: RESP 20
[2024-02-08] MEDS: Morphine Sulfate 4 MG/ML CARTRIDGE IM ×2 (21:47→22:02)
[2024-02-08 22:02] VITALS: RESP 20
[2024-02-08] MEDS: Lidocaine HCl 1 % 20 ML VIAL 30 ML INFILTRATI (22:10)
[2024-02-08 23:23] LABS: MANUAL DIFF FLAG NO
[2024-02-08 23:24] LABS: Basophils Absolute Auto 0.1 X10*3/uL (0.0-0.2); Basophils Percent Auto 0.8 % (0-2); Eosinophils Absolute Auto 0.2 X10*3/uL (0.0-0.4); Eosinophils Percent Auto 1.6 % (0-4); Hematocrit 44.9 % (42.0-52.0); Hemoglobin 14.8 g/dl (14.0-18.0); Imm Gran Abs Auto 0.06 X10*3/uL (0.00-0.03); Imm Gran Pct Auto 0.6 % (0.0-0.4); Lymphocytes Absolute Auto 1.9 X10*3/uL (1.2-4.9); Lymphocytes Percent Auto 19.2 % (20-40); Mean Corpuscular Hemoglobin 28.7 pg (27.0-33.0); Mean Corpuscular Volume 87.2 fL (80.0-98.0); Mean Platelet Volume 10.9 fL (9.4-12.4); Monocytes Absolute Auto 0.7 X10*3/uL (0.1-1.2); Monocytes Percent Auto 6.7 % (2-11); Neutrophils Absolute Auto 7.1 x10*3/uL (2.0-8.3); Neutrophils Percent Auto 71.1 % (45-73); Platelet Count 156 X10*3/uL (160-400); Red Blood Count 5.15 X10*6/uL (4.60-5.80); Red Cell Distribution Width 15.1 % (11.0-16.0)
[2024-02-09] MEDS: Diphth,Pertus(ACell),Tet Adult 0.5 ML SYRINGE IM (00:32)
[2024-02-09] MEDS: cephALEXin 500 MG CAPSULE PO (00:52)
[2024-02-09] MEDS: Ibuprofen 600 MG TABLET PO (00:52)
[2024-02-09 00:55] VITALS: BP 128/62; PULSE 89; RESP 18; TEMP 36.1; O2SAT 97
--- NOTE | 2024-02-09 00:55 | PC.NURSE ---
Pts wound cleansed, dried and nonstick dressing applied with telfa and kerlix.
== END 2024-02-09 01:00 | disposition home or self-care (01) ==
PROVIDERS: Nurse Practitioner Family; Emergency Provider Internal Medicine; PCP Internal Medicine
DX: S61.512A Laceration without foreign body of left wrist, initial encounter (principal); S51.812A Laceration without foreign body of left forearm, initial encounter; W25.XXXA Contact with sharp glass, initial encounter; Y93.89 Activity, other specified; Y92.009 Unspecified place in unspecified non-institutional (private) residence as the place of occurrence of the external cause; Y99.9 Unspecified external cause status; Z18.10 Retained metal fragments, unspecified
CPT/HCPCS: 13121; 13122; 36415; 73110; 73130; 85025; 90471; 90715; 96372; 99283; 99284; J2270

== ENCOUNTER 2024-02-19 15:23 | Outpatient (AMB) | payer MEDICAID, SELFPAY ==
[2024-02-19 15:49] VITALS: BP 150/90; PULSE 90; O2SAT 97
--- NOTE | 2024-02-19 15:49 | MHC.OFFWIV ---
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 Pt had Sutures placed in after an injury to his left hand/wrist 10 days ago. [facility] Medical History IV drug user Surgical History No pertinent past surgical history Family History Father No problems noted. Mother No problems noted. Social History Household Members: Significant Other Housing: House Do you presently have visiting nurse or other home services: No Alcohol intake: current Alcohol intake frequency: 0-2 drinks per day Patient Tobacco Use Status: Current everyday Tobacco user Tobacco use type: Cigarette Cigarette Packs Per Day: 1 Cigarettes Per Day: 20.0 Years Smoked: 17 e-Cigarette/Vaping Use: Never Used Second Hand Smoke Exposure: Yes Substance Use Type: Heroin service: No Current occupational status: unemployed Cognitive needs: No Hearing needs: No Vision needs: No Review of Systems Const All systems reviewed & are unremarkable except as noted in HPI and below Physical Exam Vital Signs: Last Vital Signs Pulse 90 02/19/24 15:49 BP 150/90 H 02/19/24 15:49 Pulse Ox 97 02/19/24 15:49 Const General: comfortable and no acute distress Orientation/consciousness: patient oriented x3 Skin Other: Well healed Scar tissue, wound clean and dry. Neuro General: patient oriented x3 Assessment & Plan Assessment & Plan (1) Visit for suture removal: Code(s): Z48.02 - Encounter for removal of sutures Plan: - All stitches removed well, Pt tolerated the procedure well. - Clean the wound and wrapped with Kerlix roll. Coding Level of Care Code Est Pt Level 4 (71452) Diagnoses Visit for suture removal Z48.02 Time Spent (min) 20
== END 2024-02-19 16:38 | disposition home or self-care (01) ==
PROVIDERS: PCP Internal Medicine; Visit Provider Nurse Practitioner Family
DX: Z48.02 Encounter for removal of sutures (principal)
CPT/HCPCS: 15853; 99212

== ENCOUNTER 2024-03-29 11:59 | Outpatient (REF) | payer OTHER, SELFPAY ==
[2024-03-29 12:56] LABS: Hematocrit 44.2 % (42.0-52.0); Mean Corpuscular HGB Conc 33.9 g/dl (31.0-36.0); Mean Corpuscular Hemoglobin 30.2 pg (27.0-33.0); Mean Corpuscular Volume 88.9 fL (80.0-98.0); Mean Platelet Volume 11.3 fL (9.4-12.4); Platelet Count 149 X10*3/uL (160-400); Red Blood Count 4.97 X10*6/uL (4.60-5.80); White Blood Count 8.6 X10*3/uL (4.8-10.8)
[2024-03-29 13:05] LABS: INTERNATIONAL NORM RATIO 1.1 (0.9-1.1); Prothrombin Time 13.5 SEC (11.1-13.3)
[2024-03-29 13:42] LABS: Alanine Aminotransferase 182 U/L (0-40); Alkaline Phosphatase 135 U/L (39-117); Aspartate Amino Transferase 225 U/L (5-37); Bilirubin Direct 0.3 mg/dL (0.0-0.5); Bilirubin Total 0.6 mg/dL (0.0-1.0); Total Protein 8.2 g/dL (6.5-8.0)
[2024-03-30 04:27] LABS: Hepatitis A Antibody IgG REACTIVE (Nonreactive); ~Hepatitis A Antibody IgG 7.88 S/CO (0.00-0.99)
[2024-03-30 04:28] LABS: HBc Num1 0.09 S/CO (0.00-0.79); HBsAGNum1 0.28 S/CO (0.00-0.99); HIV AB/AG Nonreactive (Nonreactive); HIV Num 1 0.06 S/CO (0.00-0.99); Hepatitis B Core Antibody Nonreactive (Nonreactive); Hepatitis B Surface Antigen Negative (Negative); ~Hepatitis B Surface Antibody REACTIVE (Nonreactive)
[2024-04-04 17:03] LABS: Hepatitis C Genotype 3
[2024-04-08 16:53] LABS: FIB-ALT 158 U/L (9-46); FIB-Alpha-2-Macroglobulin 417 mg/dL (106-279); FIB-Apolipoprotein A1 111 mg/dL (94-176); FIB-GGT 231 U/L (3-90); FIB-Haptoglobin 98 mg/dL (43-212); FIB-Total Bilirubin 0.5 mg/dL (0.2-1.2); Liver Fibrosis Score 0.78; Liver Fibrosis Stage F4; Nec Inflam Act Grade A3; Nec Inflam Act Score 0.85
== END 2024-03-29 12:00 | disposition home or self-care (01) ==
LOC: HO.LAB 11:59
PROVIDERS: PCP Internal Medicine; Visit Provider Internal Medicine
DX: Z11.4 Encounter for screening for human immunodeficiency virus [HIV] (principal); B19.20 Unspecified viral hepatitis C without hepatic coma
CPT/HCPCS: 36415; 80076; 81596; 85027; 85610; 86704; 86706; 86708; 87340; 87389; 87902

== ENCOUNTER 2024-04-01 14:41 | Outpatient (AMB) | payer OTHER, SELFPAY ==
[2024-04-01 14:43] VITALS: BP 124/78; PULSE 100; BMI 41.2
--- NOTE | 2024-04-01 14:43 | A.OFFVIS_ITS ---
Vital Signs 04/01/24 14:43 Height 5 ft 11 in Weight 295 lb 6.711 oz BMI 41.2 BP 124/78 Blood Pressure Location Rt radial Position Sitting Pulse 100 Intake Visit Reasons: Follow up Hep-C Intake Note: Osman presents in the office as a follow up for HEP C CC: He feels lethargic and his weight is gaining - he states he does not eat the best but it has not changed enough to explain all the weight that has gained. Allergies ketamine Adverse Reaction (Severe, Verified 04/01/24 14:43) psychosis HPI Comments Details: 33 y.o F with PMH of opiate use disorder who is here for chronic HCV. 08/24/23: Pt reports having first found about having HCV in 2016 when he was checked for HCV Ab by a detox facility. Likely acquired by IVDU has hx of sharing needles. Last use of heroin and cocaine was almost 2 months ago. Pt also drinks etOH 3-8 drinks of hard liquor x year. 1PPD smoking hx x 20 years. Sexually active but reports being monogamous - uses protection on and off. No fam hx of liver disease. Most recently, had labs checked by methadone clinic again 6 months ago and was told has chronic HCV infection for which he is interested in treatment. 04/01/24: Was lost to follow up after last visit. Just completed labs earlier this week, results pending. US Abd reviewed - also has fatty changes. BMI 41, has gained 20 lbs since he was last seen. [facility] Medical History IV drug user Surgical History (Updated 04/01/24 @ 14:46 by ARMINDA Molina) History of surgery on wrist No pertinent past surgical history Family History Father No problems noted. Mother No problems noted. Social History Household Members: Significant Other Housing: House Do you presently have visiting nurse or other home services: No Alcohol intake: current Alcohol intake frequency: 0-2 drinks per day Patient Tobacco Use Status: Current everyday Tobacco user Tobacco use type: Cigarette Cigarette Packs Per Day: 1 Cigarettes Per Day: 20.0 Years Smoked: 17 e-Cigarette/Vaping Use: Never Used Second Hand Smoke Exposure: Yes Substance Use Type: Heroin service: No Current occupational status: unemployed Cognitive needs: No Hearing needs: No Vision needs: No Review of Systems Const All systems reviewed & are unremarkable except as noted in HPI and below Physical Exam Vital Signs: Last Vital Signs Pulse 100 04/01/24 14:43 BP 124/78 04/01/24 14:43 BMI result Body Mass Index 41.2 Gen appear: NAD HEENT: nonicteric, no cervical lymphadenopathy Chest: CTA CVS: Regular S1/S2 Abd: soft, nontender, nondistended, bowel sounds + Ext: no peripheral edema Neuro: A/Ox3, noted to move all extremities spontaneously Psych: interacting appropriately Results Reviewed Results Reviewed: US Abd 09/2023: The liver is normal in size. The liver contour is normal. There is diffuse increased liver parenchymal echogenicity, consistent with hepatic steatosis. No definite focal lesion is seen, but evaluation is limited due to poor sound beam penetration through the coarse echogenic liver parenchyma. There is no intrahepatic biliary duct dilatation seen. Assessment & Plan Assessment & Plan (1) Hepatitis C: Code(s): B19.20 - Unspecified viral hepatitis C without hepatic coma Category: Medical (2) Cirrhosis: Code(s): K74.60 - Unspecified cirrhosis of liver Category: Medical (3) Obesity: Code(s): E66.9 - Obesity, unspecified Category: Medical Plan Hx of chronic HCV - unknown genotype Tx naiive. Possible cirrhosis - Fib 4 3.92 Labs drawn this morning but results pending. Once results are available will send out request for PA for either Epclusa or Mavyret. Med list reviewed and possible interactions reviewed. Reinforced to avoid any missed/skip doses as that may decrease efficacy of the treatment. Pt was also counseled on modes of transmission, educated re clean/safe needle use and risk of reinfection if continues with IVDU. He was also advised on avoiding further progression of liver disease through other factors including etOH and non-etOH fatty liver (BMI almost 40). Fatty changes in US liver. Plan: - Labs pending - Based on results, will likely need treatment with mavyret or epclusa - Based on Fib-4 anbd thrombocytopenia likely has cirrhosis. Will await fibrosure but will likely need an EGD. - Check lipids and A1c for metabolic assessment - Polysubstance use disorder counseling done as above - Follow up 4 months Orders: Orders Hemoglobin A1c 04/01/24 E66.9 - Obesity, unspecified Lipid Panel 04/01/24 E66.9 - Obesity, unspecified Coding Level of Care Code Est Pt Level 4 (04204) Diagnoses Hepatitis C B19.20 Cirrhosis K74.60 Obesity E66.9
== END 2024-04-01 15:14 | disposition home or self-care (01) ==
PROVIDERS: PCP Internal Medicine; Visit Provider Internal Medicine
DX: B19.20 Unspecified viral hepatitis C without hepatic coma (principal); K74.60 Unspecified cirrhosis of liver; E66.9 Obesity, unspecified
CPT/HCPCS: 99214

== ENCOUNTER → 2024-04-01 14:41 | Outpatient (BNVA) | payer OTHER, SELFPAY | PROVIDERS: PCP Internal Medicine; Visit Provider Internal Medicine | DX: B19.20 Unspecified viral hepatitis C without hepatic coma (principal); K74.60 Unspecified cirrhosis of liver; E66.9 Obesity, unspecified; Z68.41 Body mass index [BMI] 40.0-44.9, adult | CPT/HCPCS: 99212 ==

== ENCOUNTER 2024-05-06 10:52 | Day surgery (SDC) | payer OTHER, SELFPAY ==
[2024-05-06 12:27] VITALS: BMI 42.5
[2024-05-06 12:44] VITALS: BP 140/97; PULSE 91; RESP 18; TEMP 36.8; O2SAT 97
--- NOTE | 2024-05-06 12:55 | HO.ANESPROP2 ---
[facility] Active Problems Active Problems: All Active Problems Cirrhosis (Acute) Obesity (Acute) Hepatitis C (Acute) Second degree wilson of multiple sites (Acute) Pneumonia (Acute) Neck pain (Acute) Past Medical History Medical History IV drug user Family History Family History Father No problems noted. Mother No problems noted. Surgical History Surgical History History of surgery on wrist No pertinent past surgical history History of Problems with Anesthesia: No Social History Social History Household Members: Significant Other Housing: House Do you presently have visiting nurse or other home services: No Alcohol intake: current Alcohol intake frequency: former alcohol drinker Patient Tobacco Use Status: Current everyday Tobacco user Tobacco use type: Cigarette Cigarette Packs Per Day: 1 Cigarettes Per Day: 20.0 Years Smoked: 17 Smoked in Last 30 Days: Yes e-Cigarette/Vaping Use: Never Used Patient Interested in Nicotine Replacement: No Second Hand Smoke Exposure: Yes Substance Use Type: Heroin Are you DNR?: No Advance Directives: No Advance Directives Information Provided: Yes Nutrition Risks: No Nutritional Risk service: No Current occupational status: unemployed Cognitive needs: No Hearing needs: No Vision needs: No Meds Allergies Allergy/AdvReac Type Severity Reaction Status Date / Time ketamine AdvReac Severe psychosis Verified 05/06/24 12:43 Home Medications ?Medication ?Instructions ?Recorded ?Confirmed ?Last Taken ?Type acetaminophen 325 mg tablet 650 mg PO Q6H 08/24/23 05/06/24 Unknown History ibuprofen 600 mg tablet 600 mg PO TID 08/24/23 05/06/24 05/05/24 History methadone 10 mg/mL oral concentrate 115 mg PO Q4H 08/24/23 05/06/24 05/06/24 History Exam Height,Weight and Vital Signs: Height 5 ft 11 in Weight 138.164 kg Last Vital Signs Temp 98.2 F 05/06/24 12:44 Pulse 91 05/06/24 12:44 Resp 18 05/06/24 12:44 BP 140/97 H 05/06/24 12:44 Pulse Ox 97 05/06/24 12:44 O2 Del Method Room Air 05/06/24 12:44 Airway Mallampati Class: III TM Dist: >3cm Neck ROM: Full Loose/Missing/Broken Teeth: No Heart: RRR Lungs: CTA Assessment and Plan Assessment Anesthesia Assessment: Anesthesia Plan Discussed and Chart Reviewed Final Anesthetic Review History of Problems with Anesthesia: No NPO: Yes Final Preanesthetic Review: Meds/Allgs Chart Reviewed, Consent Obtained/Reviewed and Anes Risks/Benef Reviewed Patient Risk: Intermediate Procedure Risk: Intermediate Anesthetic Plan Anesthetic Plan: MAC: Disposition: Standard PACU
--- NOTE | 2024-05-06 12:59 | MHC.SHP ---
Pre-Procedural Eval Section A - 24 Hr Update-Section A only Date of Service: 05/06/24 The patient is an INPATIENT: No The patient has been examined within 24 hours of the surgical procedure. The History & Physical has been completed within 30 days and I have reviewed it.: No Section B - Complete if H&P > 30 days Chief Complaint: cirrhosis - screen for varices Relevant Family History (Specify if Yes): No Relevant Social History: Tobacco Use Present Medications: see Short Stay Collaborative assessment Medical History: Significant History (cirrhosis, hep C, hx of IVDA) History of Previous Operations: Relevant previous surgery/procedure and date(s) (History of surgery on wrist) Allergies: Allergies Allergy/AdvReac Type Severity Reaction Status Date / Time ketamine AdvReac Severe psychosis Verified 05/06/24 12:43 Review of Systems Sugical H&P ROS: Negative: Constitution, Cardiovascular, Respiratory and Gastrointestinal Exam Surgical H&P Exam: Normal: Heart, Normal: Lungs, Normal: Extremities and Normal: Abdomen Plan Diagnosis/Plan: Unchanged I have reviewed the history and physical and performed a pertinent physical examination on my patient. No changes have occurred unless specified. Time Spent With Patient Time: Total time managing care of this patient today ____ minutes.
--- NOTE | 2024-05-06 13:14 | PC.NURSE ---
hx iv drug use. 2 attempts for IV by Chano Martínez and one attempt and insertion by [facility] rn.
[2024-05-06 14:00] VITALS: BP 140/97; PULSE 103; RESP 18; TEMP 37.1; O2SAT 99
--- NOTE | 2024-05-06 14:05 | W.PM.OPN ---
Operative Note Operative Note Date of Service: 05/06/24 Narrative: FLEXIBLE TRANSORAL UPPER GASTROINTESTINAL ENDOSCOPY WITH BIOPSIES Pre-op diagnosis: Screen for esophageal varices Post-op diagnosis: Portal hypertensive gastropathy, gastritis Surgeon: Stacy Santiago MD Anesthesia:?MAC Consent: Indications for the procedure and potential complications of bleeding, perforation, reaction to medications and missed diagnosis were discussed with the patient and informed consent was obtained. Instrument: Olympus GIF H 190 mid size upper endoscope Monitoring: Vital signs and clinical assessment, continuous EKG monitoring, Pulse oximetry, Carbon Dioxide monitoring and blood pressure monitoring were done throughout the procedure. Procedure: The patient was placed in the left lateral decubitis position and pre-procedure medications were administered and a bite block was placed. The endoscope was inserted into the mouth and advanced under direct vision to the third part of duodenum. A careful inspection was made as the upper endoscope was withdrawn including a retroflexed examination of the proximal stomach; Findings and interventions are described below. Findings: Larynx: Normal Esophagus: GE junction at 40 cms. No esophagitis or Howard's. Stomach: Diffuse gastritis with moderate portal hypertensive gastropathy in the entire stomach with small amounts of dark heme. Antral biopsies obtained to check for H pylori. ?No gastric varices and grade 2 flap valve on retroflexed examination of the cardia. Duodenum: Normal bulb and descending duodenum Impression and Post Procedure Diagnosis: Endoscopy Findings: STOMACH: Moderate portal gastropathy in the entire stomach with small amounts of heme. Plan: Await pathology results Patient has an appointment on 08/05/24 in the GI Clinic with Dr Brown. Above findings were reviewed with the patient.
[2024-05-06 14:15] VITALS: BP 164/83; PULSE 90; RESP 18; O2SAT 95
[2024-05-06 14:30] VITALS: BP 123/78; PULSE 94; RESP 18; TEMP 37.1; O2SAT 96
== END 2024-05-06 15:30 | disposition home or self-care (01) ==
PROVIDERS: PCP Internal Medicine; Visit Provider Internal Medicine Gastroenterology
PROC: 0DJ08ZZ Inspection of Upper Intestinal Tract, Via Natural or Artificial Opening Endoscopic (ICD-10-PCS; CPT 43235; principal; 2024-05-06 13:30)
DX: K74.60 Unspecified cirrhosis of liver (principal); B18.2 Chronic viral hepatitis C; K76.6 Portal hypertension; K31.89 Other diseases of stomach and duodenum; K29.70 Gastritis, unspecified, without bleeding
CPT/HCPCS: 43239; 88305; 88313; 88342; J2250

== ENCOUNTER → 2024-05-06 10:52 | Outpatient (BNV) | payer OTHER, SELFPAY | PROVIDERS: PCP Internal Medicine; Visit Provider Internal Medicine Gastroenterology | DX: K31.89 Other diseases of stomach and duodenum (principal); K29.70 Gastritis, unspecified, without bleeding | CPT/HCPCS: 43239 ==

== ENCOUNTER 2024-07-18 14:41 | Outpatient (REF) | payer OTHER, SELFPAY ==
[2024-07-18 15:45] LABS: Alanine Aminotransferase 99 U/L (0-40); Albumin Level 4.4 g/dL (3.5-5.0); Alkaline Phosphatase 103 U/L (39-117); Aspartate Amino Transferase 83 U/L (5-37); Bilirubin Direct 0.2 mg/dL (0.0-0.5); Bilirubin Total 0.4 mg/dL (0.0-1.0); Cholesterol 202 mg/dL (<200); HDL Cholesterol 37 mg/dL (>40); LDL Cholesterol Calculated 139 mg/dL (<100); Total Protein 8.6 g/dL (6.5-8.0); Triglycerides 132 mg/dL (<150)
[2024-07-18 15:51] LABS: Estimated Average Glucose 111 mg/dL; Hemoglobin A1c % 5.5 % (<6.0)
[2024-07-20 13:27] LABS: HCV Log PCR <1.18 NOT DETECTED Log IU/mL (NOT DETECTED); HepC Viral Load <15 NOT DETECTED IU/mL (NOT DETECTED)
== END 2024-07-18 14:42 | disposition home or self-care (01) ==
LOC: HO.LAB 14:41
PROVIDERS: PCP Internal Medicine; Visit Provider Internal Medicine
DX: E66.9 Obesity, unspecified (principal); B19.20 Unspecified viral hepatitis C without hepatic coma
CPT/HCPCS: 36415; 80061; 80076; 83036; 87522

== ENCOUNTER 2024-11-07 08:37 | Outpatient (REF) | payer OTHER, SELFPAY ==
[2024-11-07 09:19] LABS: INTERNATIONAL NORM RATIO 1.2 (0.9-1.1); Prothrombin Time 13.5 SEC (10.9-12.4)
[2024-11-07 09:20] LABS: Hematocrit 47.2 % (42.0-52.0); Hemoglobin 15.6 g/dl (14.0-18.0); Mean Corpuscular HGB Conc 33.1 g/dl (31.0-36.0); Mean Corpuscular Hemoglobin 29.1 pg (27.0-33.0); Mean Corpuscular Volume 88.1 fL (80.0-98.0); Mean Platelet Volume 11.4 fL (9.4-12.4); Platelet Count 144 X10*3/uL (160-400); Red Blood Count 5.36 X10*6/uL (4.60-5.80); Red Cell Distribution Width 14.8 % (11.0-16.0); White Blood Count 10.1 X10*3/uL (4.8-10.8)
[2024-11-07 09:48] LABS: Alanine Aminotransferase 81 U/L (0-40); Albumin Level 3.9 g/dL (3.5-5.0); Alkaline Phosphatase 104 U/L (39-117); Anion Gap 11 (12-20); Aspartate Amino Transferase 93 U/L (5-37); Bilirubin Total 0.4 mg/dL (0.0-1.0); Blood Urea Nitrogen 11 mg/dL (9-16); Calcium 9.2 mg/dL (8.4-10.2); Carbon Dioxide 25 mmol/L (22-29); Chloride 104 mmol/L (96-108); Estimated Glomerular Filt Rate > 60; Glucose Random 116 mg/dL (60-115); Potassium 4.4 mmol/L (3.3-5.1); Sodium 136 mmol/L (135-145); Total Protein 7.9 g/dL (6.5-8.0)
[2024-11-08 15:23] LABS: HCV RNA PCR Qn <1.18 NOT DETECTED Log IU/mL (NOT DETECTED); HCV RNA PCR Qn <15 NOT DETECTED IU/mL (NOT DETECTED)
== END 2024-11-07 08:38 | disposition home or self-care (01) ==
LOC: HO.LAB 08:37
PROVIDERS: PCP Internal Medicine; Visit Provider Internal Medicine
DX: B19.20 Unspecified viral hepatitis C without hepatic coma (principal); K74.60 Unspecified cirrhosis of liver
CPT/HCPCS: 36415; 80053; 85027; 85610; 87522

== ENCOUNTER 2024-11-11 15:22 | Outpatient (AMB) | payer OTHER, SELFPAY ==
[2024-11-11 15:24] VITALS: BP 122/84; PULSE 97; BMI 44.3
--- NOTE | 2024-11-11 15:24 | MHC.OFFVIS ---
Vital Signs 11/11/24 15:24 Height 5 ft 11 in Weight 317 lb 7.45 oz BMI 44.3 BP 122/84 Blood Pressure Location Lt radial Position Sitting Pulse 97 Intake Visit Reasons: f/u r/s from 10/03/24 - [facility] [place] Intake Note: Osman presents in the office as a follow up for C Treatment. CC: He states that he is not sure if this is due to age and stuff but he states that his weight is out of control. He has always been 200-230lbs so this is out of his norm. He states that he has not changed anything and states that he only eats one meal in a day so he is not sure why his weight is so elevated. He knows with the Hep C that bloating and inflammation. Core Checker Required: No Allergies ketamine Adverse Reaction (Severe, Verified 11/11/24 15:24) psychosis HPI Comments Details: 33 y.o F with PMH of opiate use disorder who is here for chronic HCV. 08/24/23: Pt reports having first found about having HCV in 2015 when he was checked for HCV Ab by a detox facility. Likely acquired by IVDU has hx of sharing needles. Last use of heroin and cocaine was almost 2 months ago. Pt also drinks etOH 3-8 drinks of hard liquor x year. 1PPD smoking hx x 20 years. Sexually active but reports being monogamous - uses protection on and off. No fam hx of liver disease. Most recently, had labs checked by methadone clinic again 6 months ago and was told has chronic HCV infection for which he is interested in treatment. 04/01/24: Was lost to follow up after last visit. Just completed labs earlier this week, results pending. US Abd reviewed - also has fatty changes. BMI 41, has gained 20 lbs since he was last seen. 11/11/24: Started Epclusa 04/16/24. Labs from 11/07 confirm SVR12 which is wonderful news. Remains abstinent from IVDU. Results of EGD reviewed. Due for repeat US. Pt also continues to drink (drinking 6 pack of beer daily)+ metabolic factors - has gained another 10 lbs since was last seen. Prediabetic. High cholesterol. Laboratory Tests 03/29/24 07/18/24 11/07/24 12:31 14:51 08:53 Hepatitis A IgG Ab REACTIVE Hep Bs Antibody REACTIVE Hep C Viral Load <15 NOT DETECTED Hep C Viral Load Log <1.18 NOT DETECTED HCV RNA (PCR) IUs/ml <15 NOT DETECTED HCV RNA PCR log IUs/ml <1.18 NOT DETECTED PFSH Medical History IV drug user Surgical History (Updated 11/11/24 @ 15:34 by ARMINDA Molina) History of esophagogastroduodenoscopy (EGD) History of surgery on wrist Family History Father No problems noted. Mother No problems noted. Social History Household Members: Significant Other Housing: House Do you presently have visiting nurse or other home services: No Alcohol intake: current Alcohol intake frequency: former alcohol drinker Patient Tobacco Use Status: Current everyday Tobacco user Tobacco use type: Cigarette Cigarette Packs Per Day: 1 Cigarettes Per Day: 20.0 Years Smoked: 17 e-Cigarette/Vaping Use: Never Used Second Hand Smoke Exposure: Yes Substance Use Type: Heroin service: No Current occupational status: unemployed Cognitive needs: No Hearing needs: No Vision needs: No Review of Systems Const All systems reviewed & are unremarkable except as noted in HPI and below Physical Exam Vital Signs: Last Vital Signs Pulse 97 11/11/24 15:24 BP 122/84 11/11/24 15:24 BMI result Body Mass Index 44.3 No apparent distress, with obesity Nonicteric Abdomen soft, nondistended Alert and oriented x3, normal gait Assessment & Plan Assessment & Plan (1) Hyperlipidemia: Code(s): E78.5 - Hyperlipidemia, unspecified Category: Medical (2) Cirrhosis: Code(s): K74.60 - Unspecified cirrhosis of liver Category: Medical (3) Obesity: Code(s): E66.9 - Obesity, unspecified Category: Medical (4) Hepatitis C: Code(s): B19.20 - Unspecified viral hepatitis C without hepatic coma Category: Medical Plan 1. Chronic HCV - s/p Epclusa with SVR Pt reminded that any future IVDU poses risk of reinfection. In addition, also needs to stay abstinent and manage metabolic factors to avoid furhter progression of liver disease. Will get elastography to reassess liver fibrosis after SVR. Will also get interval MELD labs in 3 months. Prev with known CSPH. Plan: - Labs as below - US elastography - COunseling done re abstinence from polysubstance use 2. Obesity Again, discussed that morbid obesity can lead to further progression of liver disease from MASH and to manage metabolic factors as below. Plan: - Start atorvastatin 20 for lipid management - CHeck A1c - if prediabetic, consider GLP 1 RA as that robyn also help with liver disease - Recommend 10 % of TBW weight loss in the next 6 months - Referral to bariatrics requested as well Follow up 3 months Orders: Orders US abdomen comp w elastography 11/11/24 K74.60 - Unspecified cirrhosis of liver Complete Blood Count no Diff 3 Months K74.60 - Unspecified cirrhosis of liver, E78.5 - Hyperlipidemia, unspecified Prothrombin Time INR 3 Months K74.60 - Unspecified cirrhosis of liver, E78.5 - Hyperlipidemia, unspecified Lipid Panel 3 Months K74.60 - Unspecified cirrhosis of liver, E78.5 - Hyperlipidemia, unspecified Comprehensive Met. Panel 3 Months K74.60 - Unspecified cirrhosis of liver, E78.5 - Hyperlipidemia, unspecified Hemoglobin A1c 3 Months K74.60 - Unspecified cirrhosis of liver, E78.5 - Hyperlipidemia, unspecified Referrals Bariatric Surgery Referral E66.9 - Obesity, unspecified, K74.60 - Unspecified cirrhosis of liver Medications: New atorvastatin 20 mg PO BEDTIME 90 tabs 0RF E78.5 - Hyperlipidemia, unspecified Coding Level of Care Code Est Pt Level 4 (86346) Complex EM visit Add On G2211 Diagnoses Hyperlipidemia E78.5 Cirrhosis K74.60 Obesity E66.9 Hepatitis C B19.20
== END 2024-11-11 16:12 | disposition home or self-care (01) ==
PROVIDERS: PCP Internal Medicine; Visit Provider Internal Medicine
DX: E78.5 Hyperlipidemia, unspecified (principal); K74.60 Unspecified cirrhosis of liver; E66.9 Obesity, unspecified; B19.20 Unspecified viral hepatitis C without hepatic coma
CPT/HCPCS: 99214; G2211

== ENCOUNTER → 2024-11-11 15:22 | Outpatient (BNVA) | payer OTHER, SELFPAY | PROVIDERS: PCP Internal Medicine; Visit Provider Internal Medicine | DX: K74.60 Unspecified cirrhosis of liver (principal); E78.5 Hyperlipidemia, unspecified; E66.9 Obesity, unspecified; B19.20 Unspecified viral hepatitis C without hepatic coma; Z68.41 Body mass index [BMI] 40.0-44.9, adult | CPT/HCPCS: 99212 ==

== ENCOUNTER 2025-02-23 13:18 | Outpatient (REF) | payer OTHER, SELFPAY ==
[2025-02-23 14:18] LABS: Hemoglobin 14.5 g/dl (14.0-18.0); Mean Corpuscular HGB Conc 33.7 g/dl (31.0-36.0); Mean Platelet Volume 11.1 fL (9.4-12.4); Platelet Count 153 X10*3/uL (160-400); Red Blood Count 5.18 X10*6/uL (4.60-5.80); Red Cell Distribution Width 13.5 % (11.0-16.0); White Blood Count 8.8 X10*3/uL (4.8-10.8)
[2025-02-23 14:22] LABS: Estimated Average Glucose 123 mg/dL; Hemoglobin A1c % 5.9 % (<6.0)
[2025-02-23 14:37] LABS: INTERNATIONAL NORM RATIO 1.1 (0.9-1.1); Prothrombin Time 12.8 SEC (10.9-12.4)
[2025-02-23 14:46] LABS: Alanine Aminotransferase 47 U/L (0-40); Albumin Level 3.9 g/dL (3.5-5.0); Alkaline Phosphatase 91 U/L (39-117); Anion Gap 10 (12-20); Aspartate Amino Transferase 35 U/L (5-37); Bilirubin Total 0.5 mg/dL (0.0-1.0); Blood Urea Nitrogen 12 mg/dL (9-16); Calcium 9.4 mg/dL (8.4-10.2); Carbon Dioxide 26 mmol/L (22-29); Chloride 106 mmol/L (96-108); Cholesterol 150 mg/dL (<200); Estimated Glomerular Filt Rate > 60; Glucose Random 127 mg/dL (60-115); HDL Cholesterol 25 mg/dL (>40); LDL Cholesterol Calculated 93 mg/dL (<100); Potassium 4.1 mmol/L (3.3-5.1); Sodium 138 mmol/L (135-145); Total Protein 7.5 g/dL (6.5-8.0); Triglycerides 161 mg/dL (<150)
== END 2025-02-23 13:19 | disposition home or self-care (01) ==
LOC: HO.LAB 13:18
PROVIDERS: PCP Internal Medicine; Visit Provider Internal Medicine
DX: K74.60 Unspecified cirrhosis of liver (principal); E78.5 Hyperlipidemia, unspecified
CPT/HCPCS: 36415; 80053; 80061; 83036; 85027; 85610

== ENCOUNTER 2025-03-10 10:11 | Outpatient (REF) | payer OTHER, SELFPAY ==
--- NOTE | ~2025-03-10 | US_ITS ---
EXAMINATION: US ABDOMEN COMPLETE WITH LIVER ELASTOGRAPHY HISTORY: K74.60 - Unspecified cirrhosis of liver TECHNIQUE: Real-time grayscale ultrasound imaging of the abdomen was performed and images were reviewed. COMPARISON: Comparison is made with the prior examination dated 10/07/2023. FINDINGS: Liver: The right lobe of the liver measures 19.9 cm in size. The left lobe of the liver measures 15.2 cm in size. The liver demonstrates increased echotexture, consistent with steatosis. There is a nodular liver contour, compatible with cirrhosis. No focal mass or intrahepatic biliary ductal dilatation is identified. There is normal hepatopedal flow in the portal vein. Ultrasound elastography of the liver was performed with 10 separate measurements of the liver parenchyma with the patient in the supine position. Measurements were obtained approximately 2 cm below Freda's capsule and perpendicular to the capsule. Images are of satisfactory quality. The median shear wave velocity is 2.17 m/s. The interquartile range/median (IQR/median) is 0.12. Gallbladder and biliary tree: The gallbladder is not identified. The common bile duct is normal in caliber measuring 7 mm. Kidneys: The right kidney measures 11.2 cm in length and demonstrates an 11 x 9 x 8 mm lower pole cyst. The left kidney measures 11.7 cm in length and is unremarkable. Pancreas: The pancreatic head, neck, and body are unremarkable. The pancreatic tail is obscured by bowel gas. Spleen: The spleen is enlarged, measuring 13.2 cm in length. Abdominal aorta and inferior vena cava: The visualized portions of the abdominal aorta and inferior vena cava are normal in caliber. There is no free fluid in the abdomen. US/US abdomen comp w elastography IMPRESSION: 1. Hepatosplenomegaly, and hepatic steatosis and cirrhosis. 2. The gallbladder is not identified. Correlation with prior surgical history is recommended. The median shear wave velocity in the liver is 2.17 m/s, corresponding to a median liver stiffness of 14.20 kPa. The IQR/median value is 0.12. This is indicative of a quality data set. Findings are indicative of a high elastography value indicating advanced chronic liver disease. REFERENCE: Society of Radiologists in Ultrasound Liver Stiffness Thresholds (2020): LIVER STIFFNESS THRESHOLDS: *Shear wave velocity less than 1.3 m/s (Liver Stiffness equal or less than 5 kPa): High probability of being normal. *Shear wave velocity less than 1.7 m/s (Liver Stiffness less than 9 kPa): In the absence of other known clinical signs, rules out compensated advanced chronic liver disease. *Shear wave velocity between 1.7-2.1 m/s (Liver Stiffness 9-13 kPa): Suggestive of compensated advanced chronic liver disease but need further test for confirmation. *Shear wave velocity between 2.1-2.4 m/s (Liver Stiffness 13-17 kPa): Rules in compensated advanced chronic liver disease. *Shear wave velocity greater than 2.4 m/s (Liver Stiffness over 17 kPa): Suggestive of clinically significant portal hypertension. QUALITY OF DATA SET: *IQR/Median value equal or less than 0.15 implies a quality data set. *IQR/Median value over 0.15 implies a poor quality data set. SIGNIFICANT CHANGE FROM PRIOR EXAM: Significant change if liver stiffness measurement is 10% or greater from prior exam. OTHER CONSIDERATIONS: The stage of liver fibrosis may be overestimated in the setting of acute hepatitis, liver inflammation, elevated liver function tests, hepatic vascular congestion, obstructive cholestasis, non-fasting state, and infiltrative diseases such as amyloidosis and lymphoma. In some patients with NAFLD, the liver stiffness thresholds for compensated advanced chronic liver disease may be lower. In causes other than viral hepatitis and NAFLD, liver stiffness thresholds are not well established. Electronically signed by: Wilder Pedersen MD 03/10/2025 11:44 AM EDT
== END 2025-03-10 10:12 | disposition home or self-care (01) ==
LOC: HO.US 10:11
PROVIDERS: PCP Internal Medicine; Visit Provider Internal Medicine
DX: K74.60 Unspecified cirrhosis of liver (principal)
CPT/HCPCS: 76700; 76981

== ENCOUNTER → 2025-03-10 10:15 | Outpatient (BNV) | payer OTHER, SELFPAY | PROVIDERS: PCP Internal Medicine; Visit Provider Radiology Diagnostic Radiology | DX: K74.69 Other cirrhosis of liver (principal); R16.2 Hepatomegaly with splenomegaly, not elsewhere classified; K76.0 Fatty (change of) liver, not elsewhere classified | CPT/HCPCS: 76700; 76981 ==

== ENCOUNTER 2025-05-31 13:35 | Outpatient (AMB) | payer OTHER, SELFPAY ==
--- NOTE | 2025-05-31 13:38 | A.OFFVIS_ITS ---
Vital Signs 05/31/25 13:39 Height 5 ft 11 in Weight 284 lb 6.341 oz BMI 39.7 BP 131/73 Blood Pressure Location Lt brachial Position Sitting Pulse 73 Intake Visit Reasons: f/u labs and U/S Intake Note: Tacos presents in the office as a follow up lab and US. CC: He states that he is not having any concerns at this time. Here for results to his US and labs Night Monitor Required: No Allergies ketamine Adverse Reaction (Severe, Verified 05/31/25 13:38) psychosis HPI Comments Details: 33 y.o F with PMH of opiate use disorder who is here for chronic HCV. 08/24/23: Pt reports having first found about having HCV in 2016 when he was checked for HCV Ab by a detox facility. Likely acquired by IVDU has hx of sharing needles. Last use of heroin and cocaine was almost 2 months ago. Pt also drinks etOH 3-8 drinks of hard liquor x year. 1PPD smoking hx x 20 years. Sexually active but reports being monogamous - uses protection on and off. No fam hx of liver disease. Most recently, had labs checked by methadone clinic again 6 months ago and was told has chronic HCV infection for which he is interested in treatment. 04/01/24: Was lost to follow up after last visit. Just completed labs earlier this week, results pending. US Abd reviewed - also has fatty changes. BMI 41, has gained 20 lbs since he was last seen. 11/11/24: Started Epclusa 04/16/24. Labs from 11/07 confirm SVR12 which is wonderful news. Remains abstinent from IVDU. Results of EGD reviewed. Due for repeat US. Pt also continues to drink (drinking 6 pack of beer daily)+ metabolic factors - has gained another 10 lbs since was last seen. Prediabetic. High cholesterol. Laboratory Tests 03/29/24 07/18/24 11/07/24 12:31 14:51 08:53 Hepatitis A IgG Ab REACTIVE Hep Bs Antibody REACTIVE Hep C Viral Load <15 NOT DETECTED Hep C Viral Load Log <1.18 NOT DETECTED HCV RNA (PCR) IUs/ml <15 NOT DETECTED HCV RNA PCR log IUs/ml <1.18 NOT DETECTED 05/31/25: Has been working on his health. Lost 30-40lbs in 6 months. Completely abstinent from etOH x 6 months. Has also been increasing activity - walks 5 miles per day. Stopped atorva 2 months ago as ran out. Labs reviewed, MELD-Na 9. Tells me his fiance is admitted in a hospital with liver related complications too and being considered for liver transplant. [facility] Medical History IV drug user Surgical History History of esophagogastroduodenoscopy (EGD) History of surgery on wrist Family History Father No problems noted. Mother No problems noted. Social History Household Members: Significant Other Housing: House Do you presently have visiting nurse or other home services: No Alcohol intake: current Alcohol intake frequency: former alcohol drinker Patient Tobacco Use Status: Current everyday Tobacco user Tobacco use type: Cigarette Cigarette Packs Per Day: 1 Cigarettes Per Day: 20.0 Years Smoked: 17 e-Cigarette/Vaping Use: Never Used Second Hand Smoke Exposure: Yes Substance Use Type: Heroin service: No Current occupational status: unemployed Cognitive needs: No Hearing needs: No Vision needs: No Review of Systems Const All systems reviewed & are unremarkable except as noted in HPI and below Physical Exam Vital Signs: Last Vital Signs Pulse 73 05/31/25 13:39 BP 131/73 05/31/25 13:39 BMI result Body Mass Index 39.7 No apparent distress Nonicteric Abdomen soft, nondistended Alert and oriented x3, normal gait Results Reviewed Results Reviewed: US Elastography 02/2025 1. Hepatosplenomegaly, and hepatic steatosis and cirrhosis. 2. The gallbladder is not identified. Correlation with prior surgical history is recommended. 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 Pt also clean from IVDU. In addition, has been working on weight, has lost 30 lbs since he was last seen. Also with icnreased activity levels. Lipids better. MELD-Na 9 Plan: - No HE or ascites on exam today - US abd due 08/2025 - EGD for variceal screening due 04/2026 - At least 150 mins of mod intensity exercise per week - Resume atorvastatin - Do not restrict protein intake. Avoid fasting periods, add night time snack - No NSAIDs. Tylenol ok for pain control - Low MELD and compensated, no indication for transplant referral Follow up 6 months Orders: Orders US abdomen complete 3 Months K74.60 - Unspecified cirrhosis of liver Medications: Refilled atorvastatin 20 mg PO BEDTIME 90 tabs 1RF E78.5 - Hyperlipidemia, unspecified Coding Level of Care Code Est Pt Level 5 (00537) Complex EM visit Add On G2211 Diagnoses Hyperlipidemia E78.5 Cirrhosis K74.60 Obesity E66.9 Hepatitis C B19.20 Alcohol use disorder in remission F10.91
[2025-05-31 13:39] VITALS: BP 131/73; PULSE 73; BMI 39.7
== END 2025-05-31 14:26 | disposition home or self-care (01) ==
LOC: HO.HGI 13:35
PROVIDERS: PCP Internal Medicine; Visit Provider Internal Medicine
DX: K74.60 Unspecified cirrhosis of liver (principal); E78.5 Hyperlipidemia, unspecified; E66.9 Obesity, unspecified; B19.20 Unspecified viral hepatitis C without hepatic coma; F10.91 Alcohol use, unspecified, in remission
CPT/HCPCS: 99214; G2211

== ENCOUNTER → 2025-05-31 13:35 | Outpatient (BNVA) | payer OTHER, SELFPAY | PROVIDERS: PCP Internal Medicine; Visit Provider Internal Medicine | DX: Z71.2 Person consulting for explanation of examination or test findings (principal); E78.5 Hyperlipidemia, unspecified; K74.60 Unspecified cirrhosis of liver; E66.9 Obesity, unspecified; B19.20 Unspecified viral hepatitis C without hepatic coma; F10.91 Alcohol use, unspecified, in remission | CPT/HCPCS: 99212 ==